=== PATIENT | male | born 1955 | race Caucasian/White ===

== ENCOUNTER 2023-12-27 16:18 | Inpatient (IN) | payer MEDICARE, OTHER, SELFPAY ==
[2023-12-27 16:27] VITALS: BP 115/66; PULSE 81; RESP 16; TEMP 37; O2SAT 97; BMI 24.5
--- NOTE | 2023-12-27 17:00 | HP.PCM_ITS ---
[facility] - General General Date of Admission: 12/27/23 Date of Service: 12/27/23 Chief Complaint: Here for rehabilitation. HPI Narrative JENNIFER GOTTLIEB, is a 68 Male who presents with followin12/18/2023 Admit to [facility]. L1, L2, L4 compression fracture, TLSO brace, following with Neurosurgery. Worsening back pain. Significant pain with EMS, 10/10 sharp pain. Low back pain radiates to bilateral hips, worse on left side. Urinalysis negative. CT Lumbar spine negative bone destruction, or acute fracture, but showed L1, L2, L4 compression fracture, bilateral foraminal stenosis L4-L5, S5-S1. Consult neurosurgery, TLSO, PT/OT, oxycodone, Dilaudid IV for intractable low back pain. Continue Flexeril 10mg tid, Lidoderm patch, Gabapentin 200mg tid. 12/23/2023 Kyphoplasty per IR. 12/25/2023 MRI pelvis showed bilateral proximal femur bone marrow changes concerning for infiltrative process. Orthopedics recommended Hematology/Oncology consult for Multiple myeloma evaluation. WBAT, PT/OT. 12/25/2023 Heme/Onc concern for underlying neoplasm. 12/25/2023 MRI left hip showed marrow abnormality right hip, bilateral femoral shaft, possible lymphoma/leukemia or multiple myeloma. 12/26/2023 Heme/Onc recommended SPEP, FLS for multiple myeloma. Evaluate anemia. Thrombocytopenia improved. DEXA for lumbar compression fracture. 12/26/2023 Serum free lambda 185, elevated. 12/27/2023 Bone marrow biopsy performed. 12/27/2023 Admit to TCU with debility, here for rehabilitation, strengthening, prior to discharge home with . [facility] Medical History (Updated 12/27/23 @ 17:[address] Keith Rojas MD) Basal cell carcinoma Bone marrow disorder Chronic low back pain Compression fracture of L1 lumbar vertebra Compression fracture of L2 Compression fracture of L4 vertebra Debility Diabetes mellitus type II, controlled Hypertension Intractable back pain Pseudohyponatremia Recurrent deep vein thrombosis (DVT) Home Medications amlodipine 5 mg tablet 5 mg PO QDAY BP 07/08/18 [History Last Taken 12/27/23] amoxicillin 875 mg tablet 875 mg PO BID #20 tabs 07/08/18 [Rx Last Taken Unknown] cholecalciferol (vitamin D3) 125 mcg (5,000 unit) capsule 5,000 unit PO QDAY supplement 07/08/18 [History Last Taken Unknown] metoprolol succinate 50 mg tablet,extended release 24 hr 50 mg PO QDAY BP/pulse 07/08/18 [History Last Taken Unknown] psyllium husk 0.4 gram capsule (Fiber (psyllium husk)) 0.4 g PO ONCE 07/08/18 [History Last Taken Unknown] acetaminophen 500 mg capsule 1,000 mg PO Q8 pain 12/27/23 [History Last Taken Unknown] alendronate 70 mg tablet 70 mg PO DALE bone loss 12/27/23 [History Last Taken 12/22/23] apixaban 5 mg tablet (Eliquis) 5 mg PO Q12H blood thinner 12/27/23 [History Last Taken Unknown] bisacodyl 5 mg tablet,delayed release (Laxative (bisacodyl)) 10 mg PO QHS laxative 12/27/23 [History Last Taken Unknown] cyclobenzaprine 5 mg tablet 10 mg PO TID muscle spasms 12/27/23 [History Last Taken Unknown] duloxetine 20 mg capsule,delayed release 20 mg PO QHS mood 12/27/23 [History Last Taken Unknown] gabapentin 100 mg capsule 200 mg PO TID pain 12/27/23 [History Last Taken Unknown] lidocaine 4 % topical patch 2 patch topical Q24H pain 12/27/23 [History Last Taken Unknown] oxycodone 10 mg tablet,crush resistant,extended release 12 hr (OxyContin) 10 mg PO pain 12/27/23 [History Last Taken Unknown] oxycodone 5 mg tablet 5 - 10 mg PO Q6H PRN pain 12/27/23 [History Last Taken Unknown] sennosides 8.6 mg-docusate sodium 50 mg capsule (Senna Plus) 2 tab-cap PO BID bowels 12/27/23 [History Last Taken Unknown] Allergy/AdvReac Type Severity Reaction Status Date / Time No Known Allergies Allergy Unverified 07/08/18 19:50 Family History Other Diabetes Heart disease Hypertension Surgical History (Updated 12/27/23 @ 17:[address] Keith Rojas MD) History of kyphoplasty History of tonsillectomy History of tonsillectomy and adenoidectomy Social History (Updated 12/27/23 @ 17:[address] Keith Rojas MD) household members: spouse Smoking Status: Never smoker alcohol intake: current details: Social. substance use type: does not use ROS Constitutional Constitutional: Reports poor appetite and weight loss; Denies chills, fever(s) or weight gain ENT HEENT: Denies headache(s), nasal congestion or nasal discharge Cardiovascular Cardiovascular: Denies chest pain or palpitations Respiratory/Chest Respiratory/Chest: Denies cough, excessive phlegm production or shortness of breath with exertion Gastrointestinal Gastrointestinal: Denies abdominal pain, nausea or vomiting Genitourinary Genitourinary: Denies dysuria Musculoskeletal Musculoskeletal: Reports back pain; Denies joint pain or joint swelling Integumentary Integumentary: Denies rash or wounds Neurologic Neurologic: Denies focal weakness, numbness or tingling Psychiatric Psychiatric: Reports depression; Denies anxiety, auditory hallucinations, homicidal ideation or suicidal ideation Vital Signs Vital Signs Vital Signs: Weight Weight: 68.991 kg Body Mass Index (BMI) 24.5 Physical Exam Const alert General Appearance: cooperative HEENT normocephalic Eyes PERRL and EOMs intact bilaterally Neck supple, no JVD and no carotid bruits Resp normal respiratory effort, normal air movement and clear to auscultation bilaterally Cardio regular rate and regular rhythm GI normal to inspection, nondistended, normoactive bowel sounds, non-tender and non-distended Extremity normal capillary refill General Extremity: Negative for edema Skin no rashes or lesions noted General Skin Exam: no breakdown Psych affect normal Appearance: appropriate Assessment & Plan Assessment/Plan (1) Debility: (2) Intractable back pain: (3) Pseudohyponatremia: (4) Bone marrow disorder: (5) Diabetes mellitus type II, controlled: (6) Hypertension: (7) Chronic low back pain: (8) Compression fracture of L1 lumbar vertebra: (9) Compression fracture of L2: (10) Compression fracture of L4 vertebra: (11) Recurrent deep vein thrombosis (DVT): PLAN: Plan 68 year old male with below past medical history hospitalized for intractable back pain, kyphoplasty 12/23/2023, complicated by hyponatremia, bone marrow disorder, admitted to TCU with debility, here for rehabilitation, strengthening, prior to discharge home with . * Debility - PT/OT. * Pain - Tylenol 1000mg q8, Oxycontin 10mg bid, Oxycodone 10mg q4 prn pain (4- 10), Lidoderm 2 patches topical daily. * Bowel - Miralax 17gm daily, Senna/colace 2 tablets bid, Dulcolax 10mg po qhs, Magnesium citrate 300ml daily prn. * Adult immunization - Administer pneumonia vaccine, covid vaccine, flu vaccine as appropriate. * DVT prophylaxis - on Eliquis. * Osteoporosis - Alendonate 70mg qweek, Vitamin D3 25mcg daily. * Recurrent DVT - Eliquis 5mg bid. * Muscle spasm - Flexeril 5mg tid. * Neuropathic pain - Gabapentin 200mg tid, Duloxetine 20mg qhs, stable chronic usp use, GDR not recommended. * Nutrition - Glucerna Shake 120ml po tidcm. * Hypertension - Metoprolol succinate 50mg daily. * Depression/Appetite loss - rx Mirtazapine 7.5mg qhs. * Bone marrow disorder - Schedule [facility] appointment to evaluate for lymphoma vs leukemia vs multiple myeloma, Serum free lambda 185, bone marrow biopsy done 12/27/2023 at [facility].
[2023-12-27 17:25] VITALS: BMI 24.5
--- OUTSIDE RECORDS SUMMARY | 2023-12-27 18:10 | XMS RPT_ITS | CCD ---
Author Name Unknown Address [address] [place] [address] Organization [facility] Care Team Providers Care Automation Control Integrator Name Role Phone CINDI, SASHA Primary Care Unavailable CINDI, SASHA Referring Unavailable CINDI, SASHA Primary Care Unavailable CINDI, SASHA Primary Care Unavailable GILBERTO DUNLAP Referring Unavailable CINDI, SASHA Primary Care Unavailable GILBERTO DUNLAP Referring Unavailable CINDI, SASHA Primary Care Unavailable GILBERTO DUNLAP Attending Unavailable GILBERTO DUNLAP Referring Unavailable CINDI, SASHA Primary Care Unavailable NEO COOK Attending Unavailable BILL BRUNNER Admitting Unavailable KEY MAHMOOD Referring Unavailable Tom Goyal Consulting Unavailable CINDI, SASHA Primary Care Unavailable EFRAIN BOWMAN Attending Unavailable GILBERTO DUNLAP Referring Unavailable JANET OLIVIER Attending Unavailable CINDI, SASHA Primary Care Unavailable CINDI, SASHA Primary Care Unavailable SCOUT LUKE Admitting Unavailable SCOUT LUKE Attending Unavailable CINDI, SASHA Primary Care Unavailable WHINNEY, CHRISTOPHCAROLINE Admitting Unavailable WHCHANTELNEY CHRISTSERGEY Attending Unavailable CINDI, SASHA Primary Care Unavailable CINDI, SASHA Primary Care Unavailable CINDI, SASHA Referring Unavailable CINDI, SASHA Primary Care Unavailable CINDI, SASHA Referring Unavailable CINDI, SASHA Primary Care Unavailable CINDI, SASHA Primary Care Unavailable ABBEY PINEDA Referring Unavailable ERNIE LUNA Admitting Unavaila ble CINDI, SASHA Primary Care Unavailable HALIE GUEVARA Consulting Unavailable ZONIA LOVE Attending Unavail able GIANFRANCO DIETZ Referring Unavailable CINDI, SASHA Primary Care Unavailable CINDI, SASHA Primary Care Unavailable GILBERTO DUNLAP Attending Unavailable Medications Current Medications Medication Drug Class(es) Dates Sig (Normalized) Sig (Original) gabapentin 100 mg oral capsule (7 sources) Anti-epileptic Agent Start: 10-16-2023 End: 11-15-2023 take 1 capsule by mouth every eight hours gabapentin (NEURONTIN) 100 mg capsule Take 1 capsule by mouth every 8 hours for 30 days. 90 capsule 0 10/16/2023 11/15/2023 Active Completed/Discontinued Medications Medication Drug Class(es) Dates Sig (Normalized) Sig (Original) alendronic acid 70 mg oral tablet (1 source) Bisphosphonate Start: 10-30-2023 take 1 tablet by mouth every week alendronate (FOSAMAX) 70 mg tablet Take 1 tablet by mouth one time a week. 0 10/30/2023 Active Problems Problem Classification Problem Date Documented Da te Episodic/Chronic Administrative/social admission (11 sources) Other reduced mobility; Translations: [Other specified conditions influencing health status] Onset: 10-08-2023 10-10-2023 Episodic Chronic ulcer of skin (1 source) Pressure ulcer of unspecified ankle, unspecified stage; Translations: [Controlled type 2 diabetes mellitus with pressure ulcer of ankle (HCC)] Onset: 08-09-2023 Chronic Diabetes mellitus without complication (1 source) Type 2 diabetes mellitus without complications; Translations: [Controlled type 2 diabetes mellitus with pressure ulcer of ankle (HCC)] Onset: 08-09-2023 Chronic Essential hypertension (1 source) Essential (primary) hypertension; Translations: [Essential hypertension, malignant] Onset: 08-09-2023 Chronic Nutritional deficiencies (1 source) Mild protein-calorie malnutrition; Translations: [Malnutrition of mild degree (HCC)] Onset: 12-06-2023 Chronic Other fractures (5 sources) Compression fracture of lumbar spine; Translations: [Wedge compression fracture of fourth lumbar vertebra, sequela] Onset: 11-06-2023 10-22-2023 Episodic Other fractures (1 source) Compression fracture of L2; Translations: [Wedge compression fracture of second lumbar vertebra, initial encounter for closed fracture] Onset: 11-12-2023 11-12-2023 Episodic Other fractures (1 source) Wedge compression fracture of fourth lumbar vertebra, sequela; Translations: [Compression fracture of L4 lumbar vertebra, sequela] Onset: 12-10-2023 Episodic Other fractures (1 source) Wedge compression fracture of second lumbar vertebra, subsequent encounter for fracture with routine healing; Translations: [Compression fracture of L2 vertebra with routine healing, subsequent encounter] Onset: 12-10-2023 Episodic Other fractures (1 source) Wedge compression fracture of first lumbar vertebra, subsequent encounter for fracture with routine healing; Translations: [Compression fracture of L1 vertebra with routine healing, subsequent encounter] Onset: 12-10-2023 Episodic Other fractures (1 source) Wedge compression fracture of first lumbar vertebra, initial encounter for closed fracture; Translations: [Compression fracture of L1 lumbar vertebra, closed, initial encounter ([facility])] Onset: 12-06-2023 Episodic Other fractures (1 source) Wedge compression fracture of second lumbar vertebra, initial encounter for closed fracture; Translations: [Compression fracture of L2 lumbar vertebra, closed, initial encounter ([facility])] Onset: 12-06-2023 Episodic Other fractures (1 source) Wedge compression fracture of fourth lumbar vertebra, initial encounter for closed fracture; Translations: [Closed compression fracture of L4 lumbar vertebra, initial encounter ([facility])] Onset: 10-14-2023 Episodic Pathological fracture (1 source) Pathological fracture, other site, initial encounter for fracture; Translations: [Pathological fracture, other site, initial encounter for fracture] Onset: 12-10-2023 Episodic Spondylosis; intervertebral disc disorders; other back problems (20 sources) Acute low back pain; Translations: [Acute bilateral low back pain without sciatica] Onset: 10-08-2023 10-10-2023 Episodic Unclassified (1 source) Lower back L hip pain Onset: 12-17-2023 Unclassified (1 source) Intractable low back pain; Translations: [Intractable low back pain] Onset: 12-03-2023 Unclassified (1 source) Acute bilateral low back pain without sciatica; Translations: [Acute bilateral low back pain without sciatica] Onset: 12-06-2023 Unclassified (1 source) Acute low back pain without sciatica, unspecified back pain laterality; Translations: [Acute low back pain without sciatica, unspecified back pain laterality] Onset: 10-14-2023 Results Test Name Value Interpretation Reference Range Facil ity Encounters Encounter Date Encounter Type Care Provider Facility Start: 12-18-2023 Evaluation and manag ement of inpatient [facility] Facility:[facility] Start: 12-17-2023 Emergency department patient visit SASHA CINDI Facility:[facility] Start: 12-13-2023 End: 12-13-2023 ambulatory SASHA CINDI Facility:[facility] Start: 12-10-2023 End: 12-10-2023 ambulatory SASHA CINDI Facility:[facility] Start: 12-10-2023 ambulatory SASHA CINDI Facility :[facility] Start: 11-29-2023 End: 12-06-2023 Evaluation and management of inpatient SASHA CINDI Facility:[facility] Start: 11-25-2023 End: 11-29-2023 Evaluation and management of inpatient SASHA CINDI Facility:[facility] Start: 11-12-2023 End: 11-12-2023 ambulatory SASHA CINDI Facility:[facility] Start: 11-12-2023 End: 11-12-2023 Subsequent hospital visit by physician [facility] MA[facility]TE[facility]CE MANA[facility] Procedures Date Procedure Procedure Detail Performing Clinician Start: 09-27-2023 Radex spine lumbosac ral 2/3 views Sasha Wetzel MD Work Phone: Start: 07-22-2018 Lipid 1996 panel - S breann or Plasma Xr Hosp Plan of Treatment Date Care Activity Detail Author Start: 10-14-2026 Diabetes Screening Diabetes Screening [facility] Start: 08-09-2026 Diabetes Screening Diabetes Screening [facility] Start: 07-26-2023 Covid-19 Vaccine ( season) Covid-19 Vaccine ( season) [facility] Start: 07-26-2023 Influenza [facility] Start: 07-22-2023 Lipid 1996 panel - Serum or Plasma Lipid Screening [facility] Start: 07-22-2023 Lipid panel Lipid Screening [facility] Start: 11-25-2022 Advance Directive Discussion Advance Directive Discussion [facility] Start: 11-25-2022 Depression Assessment Depression Assessment [facility] Start: 2018 Pneumococcal Vaccine: 65+ (1 - PCV) Pneumococcal Vaccine: 65+ (1 - PCV) [facility] Start: 2018 Pneumococcal Vaccine: 65+ (1 of 1 - PCV) Pneumococcal Vaccine: 65+ (1 of 1 - PCV) [facility] Start: 2013 RSV Vaccine (1 - 1-dose 60+ series) RSV Vaccine (1 - 1-dose 60+ series) [facility] Start: 2003 Shingrix Vaccine (1 of 2) Shingrix Vaccine (1 of 2) [facility] Start: 1998 Cologuard (FIT-DNA) Cologuard (FIT-DNA) [facility] Start: 1998 Colonoscopy Colonoscopy [facility] Start: 1998 Colorectal Cancer Screening Colorectal Cancer Screening [facility] Start: [address] Colonography [facility] Start: 1998 Fecal Occult Blood Fecal Occult Blood [facility] Start: 1998 Screening for malignant neoplasm of colon [facility] Start: 1998 Sigmoidoscopy Sigmoidoscopy [facility] Start: 1972 Urine microalbumin profile DTaP,Tdap,Td Vaccine (1 - Tdap) [facility] Start: 1971 Hepatitis C Screening Hepatitis C Screening [facility] Start: 1971 Hepatitis C screening Hepatitis C Screening [facility] Radex spine lumbosac ral 2/3 views XR LUMBAR LIMITED 2V AP/LAT Radiology Routine Compression fracture of L4 lumbar vertebra, sequela 11/12/2023 10:43 AM EST [facility] Work Phone: [facility] Payers Date Payer Category Payer Medicare [id number] 2020 Unknown MMO MMO MEDICARE SUPPLEMENT [id number] 2020-Present [phone] [address] [place] [address] Indemnity [id number] 2018 Medicare [id number] 2018 Medicare MEDICARE MEDICAR E A AND B [id number] 2018-Present [phone] [address] [address] [place] [address] Medicare [id number] Social History Date Type Detail Facility Start: 07-23-2018 End: 10-14-2023 Tobacco smoking status NHIS Never smoked tobacco [facility] Work Phone: Start: 07-23-2018 End: 10-14-2023 Tobacco use and exposure Smokeless tobacco non-user [facility] Work Phone: Start: 07-23-2018 Alcohol intake Current non-dr phys therapist of alcohol (finding) [facility] Start: 07-23-2018 End: 10-08-2023 History of Social function [facility] Work Phone: Start: 07-23-2018 End: 10-08-2023 Tobacco use panel [facility] Work Phone: PHQ2 Score 0 [facility] Work Phone: Start: 1955 Sex Assigned At Not on file [facility] Start: 10-14-2023 End: 11-12-2023 Alcohol intake Current drinker of alcohol (finding) [facility] Start: 10-14-2023 Alcohol Comment socially [facility] Clinical Notes 05-18-2022 to 12-25-2023 Kyra Mir, PT, DPT - 11/06/2023 12:46 PM ESTTelephone Encounter - Nicolette Longoria RN - 10/25/2023 1:27 PM ESTTelephone Encounter - Sunshine Willams LPN - 10/24/2023 1:45 PM EST Note Date & Type Note Facility 12-25-2023 Note [facility] 12-24-2023 Note [facility] 12-23-2023 Note [facility] 12-23-2023 Note [facility] 12-22-2023 Note [facility] 12-22-2023 Note [facility] 12-21-2023 Note [facility] 12-21-2023 Note [facility] 12-20-2023 Note [facility] 12-20-2023 Note [facility] 12-20-2023 Note [facility] 12-19-2023 Note [facility] 12-19-2023 Note [facility] 12-18-2023 Note [facility] 12-13-2023 Note [facility] 12-10-2023 Note [facility] 12-10-2023 Note [facility] 12-04-2023 [facility] 12-03-2023 Note [facility] 12-02-2023 Note [facility] 11-28-2023 Note [facility] 11-27-2023 Note [facility] 11-12-2023 Note [facility] 11-06-2023 Note [facility] 11-06-2023 History of Presen t illness Narrative Episode Visit Count: 3 Therapist That Will Accept/Oversee The Plan Of Care: Kyra Mir Start of Care Date: 10/08/23 Onset Date: 09/17/23 Plan of Care Certification Date: 10/08/23 Next Certification Due Date: 12/07/23 Patient Identified by Name and Date of : Yes REHABILITATION AND SPORTS THERAPY PHYSICAL THERAPY RE-EVALUATION PLAN OF CARE UPDATE: Assessment: Jennifer Crouch returns to clinic for re-evaluation s/p hospitalization and diagnosis of L4 superior endplate osteoporotic fracture. CT of the left hip also revealed possible AVN of the left femoral head. Limited functional reevaluation was completed today due to patient's functional mobility limitations secondary to pain. He demonstrates difficulty with sitting, rising from a chair, and walking. PT goals were reviewed today; based on current status, he has not made progress toward goals. Patient continues to present with impairments in gait, overall function, and symptom management that interfere with standing, walking, rising from a chair, stair negotiation, bending, lifting, physical activities, recreational activities, squatting, bed mobility, sleeping . Current prognosis is Fair due to: clinical presentation, limited tolerance to activity . He will benefit from continued skilled therapy services to meet the updated goals for this plan of care as noted below. It is recommend PT be put on hold until patient follows up with neurosurgery on 11/12/23. At this time, patient's pain is still significantly limiting his functional mobility and activity tolerance. He and his inquired about home health physical therapy due to patient's difficulty and significant increase in pain with performing car transfers. Goals for Episode of Care: created on 10/08/23 through 12/03/23. Updated 11/06/23. Independent in home exercises. (on hold) Restore pain-free lumbar ROM to minimal limitations or better in all planes of movement to allow for ability to perform household activities. (on hold) Stand / Walk 20 minutes with pain <2/10 (not met) Patient to perform stair negotiation without limitation from back pain. (not met) Patient to perform bed mobility without limitation from back pain. (not met) Patient to perform sit to stand transfer from standard height chair without difficulty. (not met) Patient Goals: To get back to typical household activities (not met) Planned Interventions, Frequency, and Duration: 1x/week, 8 weeks Total Number of Visits Planned: 8 Patient to be seen for Therapeutic exercise (86819), Neuromuscular re-education (68106), Manual therapy (71503), Therapeutic activities (32293), Self-mcfp management (28105), Gait Training (01372) PLAN FOR NEXT VISIT: Hold PT until patient follows up with neurosurgery. SUBJECTIVE: Jennifer was admitted to the hospital on 10/14/23 for worsening low back pain. CT of lumabr spine revealed L4 compression fracture. He was put on prednisone (no longer taking). He was discharged home from hospital with FWW, LSO brace when OOB, oxycodone. He is taking oxycotin. His is helping assist with all household activities and most ADLS including dressing and showering. He was dicharged with home health PT orders however was told by his PCP that he would not qualify. He has not followed up with neurosurgeon yet; he is scheduled for a consult next week. CT of left hip in hospital also revealed Probable AVN at the left femoral head per imaging report.. Functional Limitations: standing, walking, rising from a chair, stair negotiation, bending, lifting, physical activities, recreational activities, squatting, bed mobility, sleeping Pain: Pain Pain Level: 3 Pain Location: Low Back/Lumbar Spine- Midline Detailed Pain Score: Yes Worst Pain Level: 10 PROMIS Scales Higher is Better 11/03/2023 10/05/2023 Phys Func - Score 23 (severe dysfunction) 23 (severe dysfunction) Phys Func - Percentile 0% 0% Self-Eff Symptom - Score 38 (Low) 41 (Average) Self-Eff Symptom - Percentile 12% 18% T-scores: mean of general population = 50. 5 points is clinically meaningfully difference Percentiles provide an indication of how the patient's score ranks in relation to the general population. Higher percentile rankings indicate better function/quality of life. 50th percentile is the average of the general population and indicates half of respondents had a worse score. OBJECTIVE MEASURES WITH LEVEL OF FUNCTION: Lumbar Spine AROM Lumbar Spine AROM Comments: not tested; patient wearing LSO brace as prescribed LE PROM Tested?: No LE Strength R LE Strength: deferred L LE Strength: deferred Gait Gait: Modified Independent Gait Device: Wheeled Walker Gait Deviations: General Deviations General Deviations/Observations: Sneha decreased Functional Performance Test Results Assistive Device: Wheeled Walker 10 Meter Walk Test Trial 1 (seconds): 11.88 10 Meter Walk Test Average (m/sec): 0.51 TREATMENT: Self-Retirement Management: 1: patient and family (spouse) member education on the followin: -recommended continued use of FWW 3: -continued use of LSO brace as recommended by provider 4: -refitting/tightening LSO brace as requested by patient. Patient reported improved comfort after brace adjustment was performed. 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 Reviewed patient specific diagnosis in relation to activities of daily living/home management. Billing * Re-Evaluation : 1 Unit Self-Care/Home Management Treatment Minutes: 24 Skilled Treatment Time Minutes (timed and untimed codes): 24 Total Session Time (minutes): 42 Session Start Time : 1247 Session Stop Time : 1329 Kyar Mir PT DPT documented in this encounter [facility] 10-25-2023 Miscellaneous Notes Per [facility] and I reached out to Sunshine Willams LPN: Per CMS guidelines he will need to have a face to face visit with you to address his home care needs since he discharged from the hospital. This can be completed virtually or in-person by you, a LEAD PERFORMANCE SUPPORT ANALYST or PA that you collaborate with. Also, per CMS guidelines that office note needs to include a discussion of HHC with the following: - why is HHC needed - why is the patient homebound - what is the diagnosis that HHC is seeing the patient for. We placed patient on Dr Dunlap's schedule for Saturday for a virtual visit to discuss this. Called patient's who stated that they are going to see his PCP next week and she states the PCP may place home PT orders instead. I told her if the PCP placed HHC PT order to let us know and we can cancel their appt. She understands.they are aware of their appt on 11/12 as well with x-rays. Nicolette Longoria RN documented in this encounter [facility] 10-24-[address] Dunlap [facility] received an order for Jennifer to receive HHC services. Per CMS guidelines he will need to have a face to face visit with you to address his home care needs since he discharged from the hospital. This can be completed virtually or in-person by you, a LEAD PERFORMANCE SUPPORT ANALYST or PA that you collaborate with. Also, per CMS guidelines that office note needs to include a discussion of HHC with the following: - why is HHC needed - why is the patient homebound - what is the diagnosis that HHC is seeing the patient for. Once completed please place a new order for HHC services. Thank you, Sunshine Willams LPN documented in this encounter [facility] 10-22-2023 Miscellaneous Notes The patient's contacted the office and stated they needed to get home physical therapy going. She states she was told by PT during his admission that he would benefit from home PT, however states once discharged they were provided with outpatient PT order. They are requesting home PT. Spoke with Dr. Dunlap who is agreeable to order for home PT. Order placed. also stated she may be contacting [facility] which is close to their home and seeing if they offer any home PT services. She was appreciative. Fran Coronel RN documented in this encounter [facility] 10-15-2023 Note [facility] documented as of this encounter (statuses as of 10/22/2023) [facility]11-21-2023 History of Past illness Narrative* Problem Noted Date Diagnosed Date Resolved Date Atypical chest pain 10/15/2023 10/16/20 23 documented as of this encounter (statuses as of 10/22/2023) [facility] History of Past illness Narrative* Problem Noted Date Diagnosed Date Resolved Date Atypical chest pain 10/15/2023 10/16/20 23 documented as of this encounter (statuses as of 10/22/2023) [facility] History of Past illness Narrative* Problem Noted Date Diagnosed Date Resolved Date Atypical chest pain 10/15/2023 10/16/20 23 documented as of this encounter (statuses as of 10/24/2023) [facility] History of Past illness Narrative* Problem Noted Date Diagnosed Date Resolved Date Atypical chest pain 10/15/2023 10/16/20 23 documented as of this encounter (statuses as of 10/25/2023) [facility] History of Past illness Narrative* Problem Noted Date Diagnosed Date Resolved Date Atypical chest pain 10/15/2023 10/16/20 23 documented as of this encounter (statuses as of 11/07/2023) [facility] History of Past illness Narrative* Problem Noted Date Diagnosed Date Resolved Date Atypical chest pain 10/15/2023 10/16/20 23 documented as of this encounter (statuses as of 11/13/2023) [facility]11-21-2023 [facility] History of Present illness Narrative* Kyra Mir PT, DPT - 10/10/2023 8:20 AM EST Program_ID:[id number] Access Code: [email or web address] URL: [email or web address] Date: 10-10-2023 Prepared By: Kyra Mir Program Notes Exercises - Standing Lumbar Extension with Counter - 5 x daily - 7 x weekly - - 5-10 - Seated Transversus Abdominis Bracing - 5 x daily - 7 x weekly - - 10 - Seated Isometric Hip Abduction with Belt - 2 x daily - 7 x weekly - 2 - 10 - Seated Isometric Hip Adduction with Ball - 2 x daily - 7 x weekly - 2 - 10 * yKra Mir PT, DPT - 10/10/2023 7:40 AM EST Episode Visit Count: 2 Therapist That Will Accept/Oversee The Plan Of Care: Kyra Mir Start of Care Date: 10/08/23 Onset Date: 09/17/23 Plan of Care Certification Date: 10/08/23 Next Certification Due Date: 12/07/23 Patient Identified by Name and Date of : Yes REHABILITATION AND SPORTS THERAPY PHYSICAL THERAPY TREATMENT NOTE ASSESSMENT: Jennifer Crouch tolerated the session with limited activity tolerance due to pain and difficulty with functional transfers/positioning. He demonstrates significant difficulty with functional transfers, avoiding spinal flexion and rotation. Hip screen has not been completed due to inability to tolerate testing positions. The patient will continue to benefit from ongoing skilled physical therapy to progress toward set goals. PLAN FOR NEXT VISIT: Attempt prone lying next visit. Core activation/strengthening in standing. SUBJECTIVE: Jennifer states he has been doing GLENNA and walking more througout the house. Pain does not increase then doing GLENNA. He noticed significant increase in pain when getting up after laying on his left side on the floor. THis morning he felt pretty good waking up. He states his bowel movements have normalized. Pain: Pain Pain Level: 4 Pain Location: Low Back/Lumbar Spine- Midline Post Treatment Pain Post Treatment Pain Level: No Change OBJECTIVE MEASURES WITH LEVEL OF FUNCTION: Lumbar Spine AROM Lumbar Flexion: (patient declined; fearful of pain) Lumbar Extension: Minimal limitation Lumbar R Side-Bend: Major limitation Lumbar L Side-Bend: Moderate limitation Lumbar R Rotation: Moderate limitation Lumbar L Rotation: Moderate limitation TREATMENT: Therapeutic Exercise: 1: GLENNA 4x5 (spread out throughout treatment session) 2: sidelying TA 5 x10 3: seated hip abd iso 5 x10 4: seated hip add iso 5 x10 5: -increased time required to complete transfers. Mechanical raising/lowering of table required tofacilitate sit<>stand. Skilled Intervention: Patient was educated in proper exercise technique and purpose for exercises. Reviewed and educated patient on additions/changes for home exercise program as above (*). Skilled judgment was used in selection of appropriate interventions. Provided written instruction for home exercise program to facilitate proper performance and compliance. Correct performance of therapeutic exercises was facilitated with verbal cuing. Manual Therapy: 1: STM lumbar paraspinals, increased focus R paraspinals. Patient in left sidelying. (no significant muscle tension. No tenderness reported. difficulty and pain transfering to stand.) Skilled Intervention: Manual skills to improve joint mobility, ROM, and decrease pain. Utilized anatomy knowledge of the therapist, and assessment of patient's response to intervention. Billing Therapeutic Exercise Treatment Minutes: 32 Manual TherapyTreatment Minutes: 8 Skilled Treatment Time Minutes (timed and untimed codes): 40 Total Session Time (minutes): 44 Session Start Time : 742 Session Stop Time : 826 Kyra Mir PT, DPT [facility]11-03-2023 NoteHNO ID: [id number] Author: Dwain Neri RT(R) Service: Radiology Author Type: Technologist Type: Progress Notes Filed: 09/27/2023 12:49 PM Note Text: Radiology Service Progress Note PATIENT NAME: Jennifer Crouch DATE OF SERVICE: September 27, 2023 TIME: 12:47 PM PATIENT IDENTITY VERIFICATION COMPLETED USING TWO (2) IDENTIFIERS: Name and Date of confirmed by patient verbally. FALL SCREENING: Has the patient had 2 falls in the last year or 1 fall with injury or currently using an Ambulatory Assistive Device (Walker, Cane, Wheelchair, Crutches, etc.)? No PATIENT GENDER DATA: Male PATIENT RELEVANT IMPLANT DATA REVIEWED: Not Applicable RADIOLOGY DEPARTMENT: General X-ray: Exam(s) Completed: Spine X-Ray(s): Lumbar AP / LAT / L5-S1 Pelvis X-Ray: Pelvis with Hip Bilateral Hips only, no Pelvis PERIPHERAL IV DATA: Not applicable SIGNED BY: RT Magdi(R) September 27, 2023 12:47 PMHol[facility] [id number] History of Present illness Narrative* Dwain Neri RT(R) - 09/27/2023 1:00 PM EDT Radiology Service Progress Note PATIENT NAME: Jennifer Crouch DATE OF SERVICE: September 27, 2023 TIME: 12:47 PM PATIENT IDENTITY VERIFICATION COMPLETED USING TWO (2) IDENTIFIERS: Name and Date of confirmedby patient verbally. FALL SCREENING: Has the patient had 2 falls in the last year or 1 fall with injury or currently using an Ambulatory Assistive Device (Walker, Cane, Wheelchair, Crutches, etc.)? No PATIENT GENDER DATA: Male PATIENT RELEVANT IMPLANT DATA REVIEWED: Not Applicable RADIOLOGY DEPARTMENT: General X-ray: Exam(s) Completed: Spine X-Ray(s): Lumbar AP / LAT / L5-S1 Pelvis X-Ray: Pelvis with Hip Bilateral Hips only, no Pelvis PERIPHERAL IV DATA: Not applicable SIGNED BY: RT Magdi(R) September 27, 2023 12:47 PM documented in [facility]08-[facility]22 NoteClinic Note: Education Assessment: Learning BarriersNo barriers TaughtPatient Primary Language of PatientEnglish Primary Language of [place] LearnerEnglish Clinic Visit: Topic(s): Clinic VisitFollow-up plan MethodVerbal, Teach-Back, Handout EvaluationTeaches back, States general concept Nursing Note: Nursing NotePatient saw Dr. Greenfield today. Patient will return as needed. Patient will follow with his PCP. Patient instructed on follow up plan and understanding voiced. Call back instructions reviewed. Raiza TAYLOR Electronic Signatures: Jade Tong (RN) (Signed 05-Jul-2022 15:10) Authored: Education Assessment, Clinic Visit, Nursing Note Last Updated: 05-Jul-2022 15:10 by Jade Tong (RN)[facility]06-24-2022 NoteClinic Note: Education Assessment: Learning BarriersNo barriers TaughtPatient Primary Language of PatientEnglish Primary Language of [place] LearnerEnglish Clinic Visit: Topic(s): Clinic VisitFollow-up plan MethodVerbal, Teach-Back, Handout EvaluationTeaches back, States general concept Nursing Note: Nursing NotePatient saw Dr. Greenfield today. Patient had labs done today. Patient will return to clinic in 6 to 8 weeks for results. Patient instructed on follow up plan and understanding voiced. Call back instructions reviewed. Raiza TAYLOR Electronic Signatures: Jade TongRN) (Signed 18-May-2022 09:59) Authored: Education Assessment, Clinic Visit, Nursing Note Last Updated: 18-May-2022 09:59 by Jade Tong (RN)[facility] Diagnosis Acute bilateral low back pain without sciatica- Primary Impaired functional mobility and activity tolerance [facility] Diagnosis Compression fracture of L4 lumbar vertebra, sequela- Primary documented [facility]* Diagnosis Acute bilateral low back pain without sciatica- Primary Impaired functional mobility and activity tolerance Closed compression fracture of L4 lumbar vertebra, initial encounter ([facility]) [facility] in this encounter [facility]* Diagnosis Compression fracture of L4 lumbar vertebra, sequela [facility]* Diagnostic Procedure Only (Routine) - Closed Specialty Diagnoses / Procedures Referred By Contac t Referred To Contact XR IMAGING Diagnoses Compression fracture of L4 lumbar vertebra, sequela Procedures XR LUMBAR LIMITED 2V AP/LAT RADEX SPINE LUMBOSACRAL 2/3 VIEWS Gilberto Dunlap MD [address] [place] [address] [place] [address] Referral ID Status Reason Start Date Expiration Date V isits Requested Visits Authorized [id number] Closed Auto-Generate d Referral 11/12/2023 12/11/2024 1 1 [facility] Summary Purpose Family History No Family History Records FoundNo Family History Records FoundNo Family History Records FoundNo Family History Records FoundNo Family History Records Found Advance Directives No Advanced Directives Records FoundNo Advanced Directives Records FoundNo Advanced Directives Records FoundNo Advanced Directives Records FoundNo Advanced Directives Records Found Reason for Referral Specialty Diagnoses / Procedures Referred By Contac t Referred To Contact Diagnoses Compression fracture of L4 lumbar vertebra, sequela Procedures CONSULT TO [facility] Gilberto Dunlap MD [address] [place] [address] [address] [place] [id number] Referral ID Status Reason Start Date Expiration Date Visits Requested Visits Authorized [id number] Pending Review PCP Requested Referral 3 01/20/2024 1 1 Additional Source Comments (unrecognized sect ion and content) No Status Records FoundNo Status Records FoundNo Status Records FoundNo Status Records FoundNo Status Records Found INFORMATION SOURCE (unrecogn ized section and content) DATE CREATED AUTHOR AUTHOR'S ORGANIZ ATION 07/07/2022 [facility] DATE CREATED AUTHOR AUTHOR'S ORGANIZ ATION 09/29/2023 [facility] DATE CREATED AUTHOR AUTHOR'S ORGANIZ ATION 11/30/2023 [facility] DATE CREATED AUTHOR AUTHOR'S ORGANIZ ATION 12/26/2023 [facility] Source Comments (unrecognize d section and content) In the event this informatio n is protected by the Federal Confidentiality of Alcohol and Drug Abuse Patient Records regulations: The Federal rules restrict any use of the information to criminally investigate or prosecute any alcohol or drug abuse patient.[facility] Hospital[facility] the event this information is protected by the Federal Confidentiality of Alcohol and Drug Abuse Patient Records regulations: The Federal rules restrict any use of the information to criminally investigate or prosecute any alcohol or drug abuse patient.[facility] the event this information is protected by the Federal Confidentiality of Alcohol and Drug Abuse Patient Records regulations: The Federal rules restrict any use of the information to criminally investigate or prosecute any alcohol or drug abuse patient.[facility] HospitalIn the event this information is protected by the Federal Confidentiality of Alcohol and Drug Abuse Patient Records regulations: The Federal rules restrict any use of the information to criminally investigate or prosecute any alcohol or drug abuse patient.[facility] HospitalIn the event this information is protected by the Federal Confidentiality of Alcohol and Drug Abuse Patient Records regulations: The Federal rules restrict any use of the information to criminally investigate or prosecute any alcohol or drug abuse patient.[facility]In the event this information is protected by the Federal Confidentiality of Alcohol and Drug Abuse Patient Records regulations: The Federal rules restrict any use of the information to criminally investigate or prosecute any alcohol or drug abuse patient.[facility] HospitalIn the event this information is protected by the Federal Confidentiality of Alcohol and Drug Abuse Patient Records regulations: The Federal rules restrict any use of the information to criminally investigate or prosecute any alcohol or drug abuse patient.[facility] HospitalIn the event this information is protected by the Federal Confidentiality of Alcohol and Drug Abuse Patient Records regulations: The Federal rules restrict any use of the information to criminally investigate or prosecute any alcohol or drug abuse patient.[facility] HospitalIn the event this information is protected by the Federal Confidentiality of Alcohol and Drug Abuse Patient Records regulations: The Federal rules restrict any use of the information to criminally investigate or prosecute any alcohol or drug abuse patient.[facility] Care Teams (unrecognized sec tion and content) Automation Control Integrator Relationship Specialty Start Date End Date Sasha Wetzel MD [address] [address] PCP - General Internal Medicine 08/06/18 Automation Control Integrator Relationship Specialty Start Date End Date Sasha Wetzel MD [address] [address] PCP - General Internal Medicine 08/06/18 Automation Control Integrator Relationship Specialty Start Date End Date Sasha Wetzel MD [address] [address] PCP - General Internal Medicine 08/06/18 Automation Control Integrator Relationship Specialty Start Date End Date Sasha Wetzel MD [address] [address] PCP - General Internal Medicine 08/06/18 Automation Control Integrator Relationship Specialty Start Date End Date Sasha Wetzel MD [address] [address] PCP - General Internal Medicine 08/06/18 Automation Control Integrator Relationship Specialty Start Date End Date Sasha Wetzel MD [address] [address] PCP - General Internal Medicine 08/06/18 Reason for Visit (unrecogniz ed section and content) Specialty Diagnoses / Procedures Referred By Contac t Referred To Contact Physical Therapy / PHYSICAL THERAPY Diagnoses Back/Hip Procedures NEW RS PT ORTH MSK Sasha Wetzel MD [address] [address] Jaimie Arechiga, PT [address] [place] [address] Referral ID Status Reason Start Date Expiration Date V isits Requested Visits Authorized [id number] Authorized 10/08/2023 12/04/2023 1 99 Reason Comments Physical Therapy Reason Comments 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 This clinical summary was aggregated from multiple sources. Caution should be exercised in using it in the provision of clinical care. This summary normalizes information from multiple sources, and as a consequence, information in this document may materially change the coding, format and clinical context of patient data. In addition, data may be omitted in some cases. CLINICAL DECISIONS SHOULD BE BASED ON THE PRIMARY CLINICAL RECORDS. [employer] [facility]. provides no warranty or guarantee of the accuracy or completeness of information in this document.
[2023-12-27] MEDS: Glucerna Shake 120 ML LIQUID PO (18:22)
[2023-12-27] MEDS: oxyCODONE 5 MG Tablet 10 MG PO (19:56)
[2023-12-27] MEDS: Gabapentin 100 MG Capsule 200 MG PO (21:31)
[2023-12-27] MEDS: APIXABAN 5 MG TABLET PO (21:32)
[2023-12-27] MEDS: oxyCODONE HCl Cr 10 MG Tablet PO (21:32)
[2023-12-27] MEDS: cycloBENZAPRine HCl 5 MG TABLET PO (21:33)
[2023-12-27] MEDS: Mirtazapine 15 MG Tablet 7.5 MG PO (21:34)
[2023-12-27] MEDS: DULoxetine Hcl 20 MG Capsule PO (21:36)
[2023-12-27] MEDS: Senna/Docusate Sodium 1 Tablet 2 TABLET PO (21:37)
[2023-12-27] MEDS: Bisacodyl 5 MG Tablet 10 MG PO (21:37)
[2023-12-27] MEDS: Acetaminophen 500 MG Tablet 1000 MG PO (21:38)
[2023-12-28] MEDS: Gabapentin 100 MG Capsule 200 MG PO ×3 (05:32→21:29)
[2023-12-28] MEDS: cycloBENZAPRine HCl 5 MG TABLET PO ×2 (05:33→13:27)
[2023-12-28] MEDS: Acetaminophen 500 MG Tablet 1000 MG PO ×3 (05:33→21:30)
[2023-12-28 06:54] LABS: Bedside Glucose 126 mg/dL (74-106)
[2023-12-28 09:33] LABS: Absolute Lymphocyte Count 1.28 X10^3/uL (0.83-4.51); Absolute Neutrophil Count 3.3 X10^3/uL (2.0-7.7); Basophil# 0.05 X10^3/uL; Basophil% 0.9 % (0-1); Eosinophil# 0.07 X10^3/uL; Eosinophils% 1.3 % (0-5); Hematocrit 28.4 % (40-54); Hemoglobin 9.1 g/dL (13.0-16.5); Lymphocyte # 1.28 X10^3/ul (0.83-4.51); Lymphocyte % 23.3 % (19-41); Mean Corpuscular Hgb 31.5 pg (27.0-32.0); Mean Corpuscular Volume 98.3 fL (80-94); Mean Platelet Vol. 10.2 fl (6.2-12.0); Monocyte# 0.63 X10^3/uL; Monocyte% 11.5 % (0-10); NRBC Flagged by Analyzer 0.5 % (0-5); Neutrophil # 3.26 X10^3/uL (2.7-7.7); Neutrophil % 59.2 % (47-70); Platelet Count 186 K/mm3 (150-450); RBC Distribution Width CV 15.6 % (11.6-14.6); RBC Distribution Width SD 54.7 fl (35.1-43.9); Red Blood Count 2.89 M/mm3 (4.6-6.2); White Blood Count 5.5 K/mm3 (4.4-11.0)
[2023-12-28] MEDS: APIXABAN 5 MG TABLET PO ×2 (09:34→21:29)
[2023-12-28] MEDS: oxyCODONE HCl Cr 10 MG Tablet PO ×2 (09:35→21:29)
[2023-12-28] MEDS: Cholecalciferol (VIT D3) 25 MCG TABLET (1,000 UNITS) PO (09:37)
[2023-12-28] MEDS: Glucerna Shake 120 ML LIQUID PO ×2 (09:37→17:37)
[2023-12-28 09:38] VITALS: BP 147/84; PULSE 86
[2023-12-28] MEDS: Metoprolol(XL)Succ 50 MG Tablet PO (09:38)
[2023-12-28 10:07] LABS: Anion Gap 3 (5-15); BUN 17 mg/dL (7-18); BUN/Creat Ratio 23.1 RATIO (10-20); Calcium,Total 8.7 mg/dL (8.5-10.1); Chloride 103 mmol/L (98-107); Creatinine, Serum 0.74 mg/dL (0.70-1.30); EST Glomerular Filtration Rate 112 mL/min (>60); Est Glom Filt Rate - Afr Amer 135 mL/min (>60); Estimated Creatinine Clearance 77.53 ml/min; Glucose 155 mg/dL (74-106); Sodium Level 128 mmol/L (136-145)
[2023-12-28] MEDS: oxyCODONE 5 MG Tablet 10 MG PO ×2 (10:33→17:41)
[2023-12-28 11:40] LABS: Osmolality, Serum 289 mOsm/KG (280-301)
[2023-12-28] MEDS: Tuberculin,Purif.prot.deriv. 50 TU/ML Vial 0.100000000000000006 ML ID (11:51)
--- NOTE | 2023-12-28 11:56 | NURSING ---
Pt. refuses to sit up in bed for meal, education provided on risk for choking when attempting to eat while lying flat in bed.
[2023-12-28 13:09] LABS: Urine Sodium 71 mmol/L (Not Establ.)
[2023-12-28 13:13] LABS: Osmolality, Urine 679 mOsm/KG
[2023-12-28 13:26] VITALS: BP 133/86; PULSE 82; RESP 16; TEMP 36.8; O2SAT 97
--- NOTE | 2023-12-28 18:16 | NURSING ---
Call placed to Dr. Rojas. Dr. Rojas made of patient's increase in pain and muscle spasms. Patient has been having immobilizing spasms and yelling out in pain. New order with read back received by Dr. Rojas to increase Flexeril to 10mg PO TID scheduled and add Valium 10mg PO every 4 hours as needed for muscle spasms.
[2023-12-28] MEDS: diazePAM 5 MG Tablet 10 MG PO (18:41)
[2023-12-28] MEDS: Bisacodyl 5 MG Tablet 10 MG PO (21:29)
[2023-12-28] MEDS: Senna/Docusate Sodium 1 Tablet 2 TABLET PO (21:29)
[2023-12-28] MEDS: Mirtazapine 15 MG Tablet 7.5 MG PO (21:29)
[2023-12-28] MEDS: cycloBENZAPRine HCl 5 MG TABLET 10 MG PO (21:29)
[2023-12-28 21:35] VITALS: PULSE 76; RESP 18; O2SAT 96
[2023-12-29 05:11] LABS: Hematocrit 27.8 % (40-54); Hemoglobin 8.8 g/dL (13.0-16.5)
[2023-12-29 06:31] LABS: Bedside Glucose 108 mg/dL (74-106)
[2023-12-29] MEDS: cycloBENZAPRine HCl 5 MG TABLET 10 MG PO (06:41)
[2023-12-29] MEDS: Acetaminophen 500 MG Tablet 1000 MG PO ×3 (06:41→22:27)
[2023-12-29] MEDS: Gabapentin 100 MG Capsule 200 MG PO ×3 (06:41→22:26)
[2023-12-29] MEDS: Alendronate Sodium 70 MG Tablet PO (08:10)
[2023-12-29 09:05] VITALS: PULSE 72
[2023-12-29] MEDS: oxyCODONE HCl Cr 10 MG Tablet PO ×2 (09:05→23:23)
[2023-12-29] MEDS: Senna/Docusate Sodium 1 Tablet 2 TABLET PO ×2 (09:05→22:27)
[2023-12-29] MEDS: Metoprolol(XL)Succ 50 MG Tablet PO (09:05)
[2023-12-29] MEDS: Glucerna Shake 120 ML LIQUID PO ×2 (09:06→17:38)
[2023-12-29] MEDS: Cholecalciferol (VIT D3) 25 MCG TABLET (1,000 UNITS) PO (09:06)
[2023-12-29] MEDS: APIXABAN 5 MG TABLET PO ×2 (09:06→22:27)
[2023-12-29] MEDS: oxyCODONE 5 MG Tablet 10 MG PO (10:53)
[2023-12-29] MEDS: 0.9% Normal Saline (1000mL) 1,000 ML 75 ML IV (11:10)
[2023-12-29 11:25] VITALS: BP 129/72; PULSE 89; RESP 18; TEMP 35.9; O2SAT 94
[2023-12-29 11:37] LABS: Anion Gap 4 (5-15); BUN 14 mg/dL (7-18); BUN/Creat Ratio 22.4 RATIO (10-20); Chloride 102 mmol/L (98-107); Creatinine, Serum 0.62 mg/dL (0.70-1.30); EST Glomerular Filtration Rate 135 mL/min (>60); Est Glom Filt Rate - Afr Amer 163 mL/min (>60); Estimated Creatinine Clearance 77.53 ml/min; Glucose 165 mg/dL (74-106); Sodium Level 130 mmol/L (136-145)
[2023-12-29] MEDS: Baclofen 10 MG Tablet PO ×2 (13:55→22:37)
[2023-12-29] MEDS: Bisacodyl 5 MG Tablet 10 MG PO (22:29)
[2023-12-29] MEDS: Mirtazapine 15 MG Tablet 7.5 MG PO (22:40)
[2023-12-30] MEDS: 0.9% Normal Saline (1000mL) 1,000 ML 75 ML IV ×2 (00:53→13:47)
[2023-12-30] MEDS: Gabapentin 100 MG Capsule 200 MG PO ×2 (06:00→13:55)
[2023-12-30] MEDS: Acetaminophen 500 MG Tablet 1000 MG PO ×3 (06:01→22:05)
[2023-12-30] MEDS: Baclofen 10 MG Tablet PO ×2 (06:02→13:55)
[2023-12-30 06:27] LABS: Absolute Lymphocyte Count 1.59 X10^3/uL (0.83-4.51); Absolute Neutrophil Count 2.9 X10^3/uL (2.0-7.7); Basophil# 0.04 X10^3/uL; Basophil% 0.7 % (0-1); Eosinophil# 0.08 X10^3/uL; Eosinophils% 1.4 % (0-5); Hematocrit 26.5 % (40-54); Hemoglobin 8.4 g/dL (13.0-16.5); Lymphocyte # 1.59 X10^3/ul (0.83-4.51); Lymphocyte % 28.2 % (19-41); Mean Corp Hgb Conc 31.7 g/dL (32-36); Mean Corpuscular Hgb 31.9 pg (27.0-32.0); Mean Corpuscular Volume 100.8 fL (80-94); Mean Platelet Vol. 9.7 fl (6.2-12.0); Monocyte# 0.92 X10^3/uL; Monocyte% 16.3 % (0-10); NRBC Flagged by Analyzer 0.9 % (0-5); Neutrophil # 2.88 X10^3/uL (2.7-7.7); Neutrophil % 51.3 % (47-70); Platelet Count 163 K/mm3 (150-450); RBC Distribution Width CV 15.8 % (11.6-14.6); RBC Distribution Width SD 56.1 fl (35.1-43.9); Red Blood Count 2.63 M/mm3 (4.6-6.2); White Blood Count 5.6 K/mm3 (4.4-11.0)
[2023-12-30 06:44] LABS: Bedside Glucose 109 mg/dL (74-106)
[2023-12-30 07:05] LABS: Anion Gap 1 (5-15); BUN 11 mg/dL (7-18); BUN/Creat Ratio 17.2 RATIO (10-20); Calcium,Total 8.5 mg/dL (8.5-10.1); Chloride 106 mmol/L (98-107); Creatinine, Serum 0.64 mg/dL (0.70-1.30); EST Glomerular Filtration Rate 132 mL/min (>60); Est Glom Filt Rate - Afr Amer 159 mL/min (>60); Estimated Creatinine Clearance 77.53 ml/min; Glucose 123 mg/dL (74-106); Potassium 4.3 mmol/L (3.5-5.1); Sodium Level 131 mmol/L (136-145)
[2023-12-30] MEDS: oxyCODONE HCl Cr 10 MG Tablet PO ×2 (09:45→22:05)
[2023-12-30] MEDS: Lidocaine 5% Patch 2 PATCH TOPICAL (09:46)
[2023-12-30] MEDS: Senna/Docusate Sodium 1 Tablet 2 TABLET PO ×2 (09:47→22:03)
[2023-12-30 09:51] VITALS: PULSE 72
[2023-12-30] MEDS: Cholecalciferol (VIT D3) 25 MCG TABLET (1,000 UNITS) PO (09:51)
[2023-12-30] MEDS: Metoprolol(XL)Succ 50 MG Tablet PO (09:51)
[2023-12-30] MEDS: APIXABAN 5 MG TABLET PO ×2 (09:51→22:04)
--- NOTE | 2023-12-30 10:17 | PCM.PN.DRR ---
Documented by User: Kush Roblero 12/30/23 10:36 TCU RX Drug Regimen Review Subjective/Objective Subjective/Objective: Subjective: TCU admission note. 68 year old male with below past medical history hospitalized for intractable back pain, kyphoplasty 12/23/2023, complicated by hyponatremia, bone marrow disorder, admitted to TCU with debility, here for rehabilitation, strengthening, prior to discharge home with . Objective: Allergies No Known Allergies Allergy (Unverified 07/08/18 19:50) Current Medications Generic Name Dose Route Start Last Admin Trade Name Freq PRN Reason Stop Dose Admin Acetaminophen 1,000 mg 12/27/23 22:00 12/30/23 06:01 Acetaminophen 500 Mg Tablet PO 1,000 mg Q8 CARLOS EDUARDO Administration Alendronate Sodium 70 mg 12/29/23 07:00 12/29/23 08:10 Alendronate Sodium 70 Mg Tablet PO 70 mg DALE CARLOS EDUARDO Administration Apixaban 5 mg 12/27/23 22:00 12/30/23 09:51 Apixaban 5 Mg Tablet PO 5 mg BID CARLOS EDUARDO Administration Baclofen 10 mg 12/29/23 14:00 12/30/23 06:02 Baclofen 10 Mg Tablet PO 10 mg TID CARLOS EDUARDO Administration Bisacodyl 10 mg 12/27/23 22:00 12/29/23 22:29 Bisacodyl 5 Mg Tablet PO 10 mg QHS CARLOS EDUARDO Administration Cholecalciferol 25 mcg 12/28/23 10:00 12/30/23 09:51 Cholecalciferol (Vit D3) 25 Mcg Tablet (1,000 Units) PO 25 mcg DAILY CARLOS EDUARDO Administration Diazepam 10 mg 12/28/23 18:12 12/28/23 18:41 Diazepam 5 Mg Tablet PO 10 mg Q4H PRN Administration muscle spasms Gabapentin 200 mg 12/27/23 22:00 12/30/23 06:00 Gabapentin 100 Mg Capsule PO 200 mg TID CARLOS EDUARDO Administration Sodium Chloride 1,000 mls @ 75 mls/hr 12/29/23 10:10 12/30/23 00:53 IV 75 mls/hr .[id number] CARLOS EDUARDO Administration Lidocaine 2 patch 12/28/23 10:00 12/30/23 09:46 Lidocaine 5% Patch TOPICAL 2 patch Q24 CARLOS EDUARDO Administration Magnesium Citrate 300 ml 12/27/23 19:08 Magnesium Citrate 300 Ml PO DAILY PRN CONSTIPATION Metoprolol Succinate 50 mg 12/28/23 10:00 12/30/23 09:51 Metoprolol(Xl)Succ 50 Mg Tablet PO 50 mg DAILY CARLOS EDUARDO Administration Protocol Mirtazapine 7.5 mg 12/27/23 22:00 12/29/23 22:40 Mirtazapine 15 Mg Tablet PO 7.5 mg QHS CARLOS EDUARDO Administration Nutritional Formula (Lactose Free) 120 ml 12/27/23 17:45 12/30/23 09:18 Glucerna Shake 120 Ml Liquid PO Not Given TIDCM CARLOS EDUARDO Oxycodone HCl 10 mg 12/27/23 22:00 12/30/23 09:45 Oxycodone Hcl Cr 10 Mg Tablet PO 10 mg BID CARLOS EDUARDO Administration Oxycodone HCl 10 mg 12/27/23 19:13 12/29/23 10:53 Oxycodone 5 Mg Tablet PO 10 mg Q4H PRN PRN Administration pain 4-10 Polyethylene Glycol 17 gm 12/28/23 10:00 12/30/23 09:50 Polyethylene Glycol 3350 17 Gm Packet PO Not Given DAILY CARLOS EDUARDO Senna/Docusate Sodium 2 tablet 12/27/23 22:00 12/30/23 09:47 Senna/Docusate Sodium 1 Tablet PO 1 tablet BID CARLOS EDUARDO Administration Sodium Chloride 10 - 40 ml 12/27/23 16:37 0.9% Saline Lock 10 Ml Syringe IV UD PRN SALINE FLUSH Tuberculin PPD 0.1 ml 01/04/24 10:00 Tuberculin,Purif.Prot.Deriv. 50 Tu/Ml Vial ID 01/04/24 10:01 X1 ONE Problem List (Updated 12/27/23 @ 17:[address] Keith Rojas MD) Recurrent deep vein thrombosis (DVT) (Acute) Compression fracture of L4 vertebra (Acute) Compression fracture of L2 (Acute) Compression fracture of L1 lumbar vertebra (Acute) Chronic low back pain (Chronic) Hypertension (Chronic) Diabetes mellitus type II, controlled (Acute) Bone marrow disorder (Acute) Pseudohyponatremia (Acute) Intractable back pain (Acute) Debility (Acute) Vital Signs Temp Pulse Resp BP Pulse Ox O2 Del Method 96.7 F L 72 18 129/72 H 94 Room Air 12/29/23 11:25 12/30/23 09:51 12/29/23 11:25 12/29/23 11:25 12/29/23 11:25 12/30/23 00:30 Oxygen Delivery Method Room Air Weight: 68.991 kg Body Mass Index (BMI) 24.5 Sodium 131 mmol/L (136-145) L 12/30/23 05:33 Potassium 4.3 mmol/L (3.5-5.1) 12/30/23 05:33 Chloride 106 mmol/L (98-107) 12/30/23 05:33 Carbon Dioxide 24.0 mmol/L (21.0-32.0) 12/30/23 05:33 Anion Gap 1 (5-15) L 12/30/23 05:33 BUN 11 mg/dL (7-18) 12/30/23 05:33 Creatinine 0.64 mg/dL (0.70-1.30) L 12/30/23 05:33 Est GFR (MDRD) Af Amer 159 mL/min (>60) 12/30/23 05:33 Est GFR (MDRD) Non-Af 132 mL/min (>60) 12/30/23 05:33 BUN/Creatinine Ratio 17.2 RATIO (10-20) 12/30/23 05:33 Glucose 123 mg/dL (74-106) H 12/30/23 05:33 Assessment/Plan: 1. Pain: acetaminophen 1000 mg PO Q8H, Oxycontin 10 mg PO BID, oxycodone 10 mg PO Q4H PRN pain (4-10), lidocaine 5% patch 2 patches topically daily. The patient has used 4 doses of PRN oxycodone so far this admission. Please continue to monitor for pain levels, PRN medication usage, LFTs (no recent LFTs documented), for constipation, respiratory depression, drowsiness/dizziness, syncope/ataxia/falls, and rash. 2. Bowel: polyethylene glycol 17 grams PO daily, bisacodyl 10 mg PO QHS, senna/docusate 2 tabs PO BID, magnesium citrate 300 mL PO daily PRN constipation. The patient has not required any PRN doses of magnesium citrate and the patient does not have a documented bowel movement this admission. Please continue to monitor for bowel movements, PRN medication usage, constipation and diarrhea. Please consider administering magnesium citrate as the patient does not have a bowel movement documented since his admission 3 days ago. 3. Osteoporosis: alendronate 70 mg once weekly on Sundays, cholecalciferol 25 mcg PO daily. Please continue to monitor for bone strength, fractures, GI distress, calcium levels (Ca = 8.5 mg/dL on 12/30/23), and for jaw pain that could indicate osteonecrosis of the jaw, as well as vitamin D levels (no recent vitamin D level documented). 4. DVT: apixaban 5 mg Po BID. Please continue to monitor for s/s of a DVT such as pain/erythema/swelling in an extremity as well as shortness of breath/chest pain, for s/s fo bleeding/excessive bruising, hemoglobin levels (Hgb = 8.4 g/dL on 12/30/23), and platelet counts (plt = 163 K/mm3 on 12/30/23). 5. Muscle spasms: baclofen 10 mg PO TID, diazepam 10 mg PO Q4H PRN muscle spasms. The patient has required 1 dose of PRN diazepam so far this admission. Please continue to monitor for muscle spasms, for drowsiness, dizziness, confusion, nausea/vomiting, itching, and constipation. 6. Neuropathic pain: gabapentin 200 mg PO TID. Please continue to monitor for neuropathic pain, for edema, dizziness, drowsiness, and fatigue. 7. Hypertension: metoprolol succinate 50 mg PO daily. Please continue to monitor blood pressures (recent range = 115-147/66-86 mmHg), heart rates (recent range = 72-89 beats/min) and for fatigue. The patient's blood pressures have mostly been elevated this admission, please consider increasing metoprolol succinate to 75 mg PO daily. 8. Nutrition: glucerna shake 120 mL PO three times daily with meals. Please continue to monitor nutritional status. Assessment/Plan for indications treated with psychotropic medications: 1. Depression/appetite loss: mirtazapine 7.5 mg PO QHS. Please continue to monitor for depression, SI, appetite, for s/s of orthostasis, for sedation, for s/s of serotonin syndrome and for constipation. Medical chart and medication regimen reviewed. The following medication irregularities or issues were identified: 1. Bowel: polyethylene glycol 17 grams PO daily, bisacodyl 10 mg PO QHS, senna/docusate 2 tabs PO BID, magnesium citrate 300 mL PO daily PRN constipation. Please consider administering magnesium citrate as the patient does not have a bowel movement documented since his admission 3 days ago. 2. Hypertension: metoprolol succinate 50 mg PO daily. The patient's blood pressures have mostly been elevated this admission, please consider increasing metoprolol succinate to 75 mg PO daily. Date Date of Note:: 12/30/23 Documented by User: Dr. Keith Rojas MD 12/30/23 13:04 TCU RX Drug Regimen Review Provider Comments Provider responsibility Provider Comments to Recommendations by Pharmacy: Agree
--- NOTE | 2023-12-30 10:28 | NURSING ---
Addendum entered by Mary Morgan 12/30/23 13:57: Danuta updated RN that they set up a call with the oncologist for tomorrow (12/31/23) @1430. Original Note: Spoke with patient and , Danuta about oncology/hematology follow-up. They would like to see Dr. Ford. Per office staff at Dr. Ford, they can't schedule patient unless they have biopsy results/diagnosis. Updated patient and . Danuta will set up a virtual visit with the [place] reservoir engineering manager to get results then they may transfer care to [place].
--- NOTE | 2023-12-30 10:43 | CASEMGMT ---
Initial SW TCU admit note SW met w/pt to complete initial assessment. SW introduced self and role. SW verified and updated contacts. Pt confirmed full code status w/SW. Educated pt to Medicare benefit, explained that he has used 7 days of his benefit between here and [place], and is on day 8. Pt's goal is to return home w/ and continuation of [facility] for PT/OT. Pt may be interested in updating LW/POA while here, did bring in copies and they are placed on chart, SW gave them the blank forms to review. SW will continue to follow along for any social service/discharge planning needs. RODRIGUEZ Saul
--- NOTE | 2023-12-30 11:03 | NURSING ---
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 He has stated he prefers to stay in his room and rest when not in therapy. 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 Farzad is not interested in having therapy dog visit or the ship rigger apprentice at this time. His will visit and bring him items he may need. His was in the room during the activity asset: and agrees with his wishes. He will watch tv, read the paper and us his smartphone. Staff will remind him weekly activities and respect his right to say no.
--- NOTE | 2023-12-30 11:09 | NURSING ---
Offered Covid vaccine, VIS provided. Patient refuses at this time.
[2023-12-30] MEDS: oxyCODONE 5 MG Tablet 10 MG PO (11:44)
[2023-12-30 14:35] VITALS: BP 134/81; PULSE 82; RESP 16; TEMP 36.9; O2SAT 96
--- NOTE | 2023-12-30 17:58 | NURSING ---
Patient noting to have apneic periods when sleeping. Increasingly worsening since change in medications yesterday. requesting baclofen to be decreased as well as gabapentin. MD notified ok to decrease gabapentin to 100 mg TID and Baclofen 5mg TID.
[2023-12-30] MEDS: Bisacodyl 5 MG Tablet 10 MG PO (22:03)
[2023-12-30] MEDS: Baclofen 10 MG Tablet 5 MG PO (22:04)
[2023-12-30] MEDS: Gabapentin 100 MG Capsule PO (22:05)
[2023-12-30] MEDS: Mirtazapine 15 MG Tablet 7.5 MG PO (22:06)
[2023-12-31] MEDS: oxyCODONE 5 MG Tablet 10 MG PO ×3 (02:36→16:35)
[2023-12-31] MEDS: diazePAM 5 MG Tablet 10 MG PO (02:52)
[2023-12-31] MEDS: 0.9% Normal Saline (1000mL) 1,000 ML 75 ML IV ×2 (02:56→16:26)
--- NOTE | 2023-12-31 03:08 | NURSING ---
Entered room, patient with all clothing off. DOUGH MIXER assisted with getting patient situated. Bedding was wet. Sheets, pad changed. Fresh gown put on patient. Patient very painful, prn medications administered. Will continue to monitor.
[2023-12-31] MEDS: Gabapentin 100 MG Capsule PO ×3 (05:46→21:22)
[2023-12-31] MEDS: Baclofen 10 MG Tablet 5 MG PO ×3 (05:46→21:22)
[2023-12-31 06:02] LABS: Hemoglobin 8.2 g/dL (13.0-16.5)
[2023-12-31 06:24] LABS: Anion Gap 1 (5-15); BUN 8 mg/dL (7-18); BUN/Creat Ratio 12.1 RATIO (10-20); Calcium,Total 8.2 mg/dL (8.5-10.1); Chloride 105 mmol/L (98-107); Creatinine, Serum 0.66 mg/dL (0.70-1.30); EST Glomerular Filtration Rate 126 mL/min (>60); Est Glom Filt Rate - Afr Amer 153 mL/min (>60); Estimated Creatinine Clearance 77.53 ml/min; Glucose 115 mg/dL (74-106); Potassium 3.4 mmol/L (3.5-5.1); Sodium Level 132 mmol/L (136-145)
--- NOTE | 2023-12-31 06:26 | NURSING ---
Patient needing to void, attempting to take his gown off. This nurse assisted him with removing gown and attempted to help him with urinal. Patient very resistant, and insisting he could get out of bed. Still very painful when he moves. Redirected numerous times. Finally able to get patient to use urinal. Afterward, attempted to give patient AM meds, able to get him to swallow Neurontin and baclofen, unable to get him to swallow Tylenol. Patient very confused with where he is and why he is here. Will continue to monitor.
[2023-12-31 06:57] LABS: Bedside Glucose 113 mg/dL (74-106)
[2023-12-31] MEDS: Senna/Docusate Sodium 1 Tablet 2 TABLET PO (09:23)
[2023-12-31] MEDS: oxyCODONE HCl Cr 10 MG Tablet PO (09:23)
[2023-12-31] MEDS: APIXABAN 5 MG TABLET PO (09:23)
[2023-12-31 09:24] VITALS: BP 168/91; PULSE 80
[2023-12-31] MEDS: Metoprolol(XL)Succ 50 MG Tablet 75 MG PO (09:24)
[2023-12-31] MEDS: Cholecalciferol (VIT D3) 25 MCG TABLET (1,000 UNITS) PO (09:24)
[2023-12-31 10:00] VITALS: RESP 18; O2SAT 97
[2023-12-31 10:34] VITALS: BP 168/91; PULSE 80; RESP 20; TEMP 36.3; O2SAT 99
[2023-12-31] MEDS: Potassium Chloride Oral Tablet 20 MEQ 40 MEQ PO (10:55)
[2023-12-31] MEDS: Acetaminophen 500 MG Tablet 1000 MG PO (15:46)
--- NOTE | 2023-12-31 21:34 | NURSING ---
Upon trying to administer HS medications patients was in room, stating that she does not want him to have anything to knock him out due to the pattern of breathing and lethargy. This nurse spoke with patient and patient states that he is not wanting to take any big medications at this time. This nurse was able to get patient to take gabapentin and baclofen, in which patient had difficulty swallowing. Patient noted to have confusion stating that he doesnt remember his surgery and did not know he was in the hospital. Patient continues to take gown off and cry stating that he doesnt know why his is in the hospital. Patient now resting in bed with eyes closed. Will continue to monitor patient.
[2024-01-01] MEDS: oxyCODONE 5 MG Tablet 10 MG PO ×4 (00:42→16:30)
[2024-01-01] MEDS: Baclofen 10 MG Tablet 5 MG PO ×3 (05:27→22:07)
[2024-01-01] MEDS: Gabapentin 100 MG Capsule PO ×3 (05:27→22:51)
[2024-01-01] MEDS: Acetaminophen 500 MG Tablet 1000 MG PO ×3 (05:28→22:08)
[2024-01-01 05:53] LABS: Hematocrit 25.4 % (40-54); Hemoglobin 8.1 g/dL (13.0-16.5)
[2024-01-01] MEDS: 0.9% Normal Saline (1000mL) 1,000 ML 75 ML IV ×2 (05:57→18:49)
[2024-01-01 06:15] LABS: Anion Gap 0 (5-15); BUN 6 mg/dL (7-18); Calcium,Total 8.1 mg/dL (8.5-10.1); Chloride 106 mmol/L (98-107); Creatinine, Serum 0.66 mg/dL (0.70-1.30); EST Glomerular Filtration Rate 126 mL/min (>60); Est Glom Filt Rate - Afr Amer 152 mL/min (>60); Estimated Creatinine Clearance 77.53 ml/min; Glucose 112 mg/dL (74-106); Potassium 3.7 mmol/L (3.5-5.1); Sodium Level 133 mmol/L (136-145)
[2024-01-01 06:48] LABS: Bedside Glucose 100 mg/dL (74-106)
--- NOTE | 2024-01-01 08:53 | NURSING ---
Addendum entered by Mary Morgan 01/01/24 14:03: Followed up with oncology office, spoke with Fawad, received orders for 40mg dexamethasone weekly per Dr. Staton. Original Note: Note left from previous shift to call hematology/onc office of Dr. Staton to see about new orders. Left VM with office including call back number and fax number.
[2024-01-01] MEDS: Glucerna Shake 120 ML LIQUID PO ×2 (09:25→16:34)
[2024-01-01] MEDS: Potassium Chloride Oral Tablet 20 MEQ PO (09:26)
[2024-01-01] MEDS: Lidocaine 5% Patch 2 PATCH TOPICAL (09:27)
[2024-01-01] MEDS: Polyethylene Glycol 3350 17 GM PACKET PO (09:29)
[2024-01-01] MEDS: oxyCODONE HCl Cr 10 MG Tablet PO ×2 (09:29→22:51)
[2024-01-01 09:30] VITALS: BP 135/68; PULSE 74; BMI 23.4
[2024-01-01] MEDS: Senna/Docusate Sodium 1 Tablet 2 TABLET PO ×2 (09:30→22:09)
[2024-01-01] MEDS: Metoprolol(XL)Succ 50 MG Tablet 75 MG PO (09:30)
--- NOTE | 2024-01-01 10:15 | CASEMGMT ---
Social Work IDT met with patient and for care plan meeting. Pt asleep during meeting and unarousable. noted pt has had a noted decline the past few days. Nursing aware. appears realistic to the disease process. SW educated to Medicare benefit and copay coverage; pt admitted on day . aware pt returning home at current LOC is not realistic. asked medical questions and this worker referred to Dr. Rojas. will be present this evening during Dr rounds and written communication left for Dr to visit . SW assured this worker is here to assist with any direction of treatment planning. appreciative. SW will continue to follow. YEFRI LiW
[2024-01-01] MEDS: APIXABAN 5 MG TABLET PO ×2 (10:27→22:07)
--- NOTE | 2024-01-01 11:12 | NURSING ---
Addendum entered by Mayr Morgan 01/01/24 12:27: Updated and patient in room. Addendum entered by Mary Morgan 01/01/24 12:27: Call from [facility], they will have to get records from bone biopsy and pathology results. Once they have records they will call TCU to set up new patient appt. Original Note: Spoke with oncology staff about consult, they requested consult be faxed. Faxed to [phone].
[2024-01-01 15:21] VITALS: BP 169/84; PULSE 75; RESP 16; TEMP 36.8; O2SAT 94
[2024-01-01] MEDS: dexAMETHasone 4 MG Tablet 40 MG PO (16:31)
[2024-01-01] MEDS: 0.9% Saline Lock 10 ML Syringe IV (18:49)
[2024-01-01] MEDS: Mirtazapine 15 MG Tablet 7.5 MG PO (22:08)
[2024-01-01] MEDS: Bisacodyl 5 MG Tablet 10 MG PO (22:08)
[2024-01-01 22:51] VITALS: O2SAT 95
[2024-01-02] MEDS: oxyCODONE 5 MG Tablet 10 MG PO (02:57)
--- NOTE | 2024-01-02 05:40 | NURSING ---
Confusion observed, written communication left for Dr. Rojas .
[2024-01-02 05:55] LABS: Hematocrit 26.9 % (40-54); Hemoglobin 8.4 g/dL (13.0-16.5)
[2024-01-02 06:18] LABS: Bedside Glucose 188 mg/dL (74-106)
[2024-01-02 06:25] LABS: Thyroid Stim Hormone (TSH) 1.01 uIU/mL (0.358-3.74)
[2024-01-02] MEDS: Baclofen 10 MG Tablet 5 MG PO ×3 (06:40→21:33)
[2024-01-02] MEDS: Acetaminophen 500 MG Tablet 1000 MG PO ×3 (06:40→21:32)
[2024-01-02] MEDS: Gabapentin 100 MG Capsule PO ×3 (06:41→21:31)
[2024-01-02] MEDS: 0.9% Normal Saline (1000mL) 1,000 ML 75 ML IV (06:50)
[2024-01-02] MEDS: Glucerna Shake 120 ML LIQUID PO ×3 (08:06→17:59)
[2024-01-02] MEDS: Potassium Chloride Oral Tablet 20 MEQ PO (08:10)
[2024-01-02] MEDS: Lidocaine 5% Patch 2 PATCH TOPICAL (09:29)
[2024-01-02] MEDS: APIXABAN 5 MG TABLET PO ×2 (09:29→21:34)
[2024-01-02] MEDS: Senna/Docusate Sodium 1 Tablet 2 TABLET PO ×2 (09:30→21:32)
[2024-01-02] MEDS: oxyCODONE HCl Cr 10 MG Tablet PO ×2 (09:30→21:31)
[2024-01-02 09:31] VITALS: PULSE 100
[2024-01-02] MEDS: Metoprolol(XL)Succ 50 MG Tablet 75 MG PO (09:31)
[2024-01-02] MEDS: Cholecalciferol (VIT D3) 25 MCG TABLET (1,000 UNITS) PO (09:32)
[2024-01-02 13:22] VITALS: BP 152/72; PULSE 80; RESP 18; TEMP 36.4; O2SAT 97
--- NOTE | 2024-01-02 13:50 | MDS.RN ---
Pain interview for mds completed.
[2024-01-02 15:58] LABS: Bacteria 0 SEEN /hpf (None Seen); Mucous, Urine 0 SEEN /hpf (<or=2+); Red Blood Cells-Urine 0 SEEN /hpf (0-5); Squamous Epithelial Cells - UA 0 SEEN /hpf (0-5); White Blood Cells 0 SEEN /hpf (0-5)
[2024-01-02 16:02] LABS: Color, Urine Yellow (Yellow); Glucose, Dipstick Normal (Normal); Leukocyte Esterase-Dipstick Negative /ul (Negative); Nitrite-Dipstick Negative (Negative); Occult Blood-Urine Negative /ul (Negative); Protein-Dipstick 15 mg/dl (Negative); Specific Gravity, Urine 1.025 (1.002-1.030); Urine Bilirubin Dipstick Negative (Negative); Urine Clarity Clear (Clear); Urine Urobilinogen Normal (Normal)
[2024-01-02 16:15] LABS: Ketone-Dipstick 150 mg/dl (Negative)
--- NOTE | 2024-01-02 16:21 | NURSING ---
Call placed to Dr. Rojas. Nurse reported critical urine ketones of 150. New order for NS 100mL/hr. Order entered by Dr. Rojas.
--- NOTE | 2024-01-02 17:04 | NURSING ---
INCREASED NS FROM 75ML TO 100ML AN HOUR PER NEW ORDER AT 1630.
[2024-01-02] MEDS: 0.9% Normal Saline (1000mL) 1,000 ML 100 ML IV (19:28)
[2024-01-02] MEDS: Bisacodyl 5 MG Tablet 10 MG PO (21:33)
[2024-01-02] MEDS: Mirtazapine 15 MG Tablet 7.5 MG PO (21:34)
[2024-01-03] MEDS: 0.9% Normal Saline (1000mL) 1,000 ML 100 ML IV ×2 (05:30→18:08)
[2024-01-03] MEDS: Gabapentin 100 MG Capsule PO ×3 (05:31→22:31)
[2024-01-03] MEDS: Acetaminophen 500 MG Tablet 1000 MG PO ×3 (05:32→22:30)
[2024-01-03] MEDS: Baclofen 10 MG Tablet 5 MG PO ×3 (05:32→22:31)
[2024-01-03 05:52] LABS: Absolute Lymphocyte Count 1.23 X10^3/uL (0.83-4.51); Absolute Neutrophil Count 2.8 X10^3/uL (2.0-7.7); Basophil# 0.01 X10^3/uL; Basophil% 0.2 % (0-1); Eosinophil# 0.01 X10^3/uL; Eosinophils% 0.2 % (0-5); Hematocrit 27.5 % (40-54); Hemoglobin 8.8 g/dL (13.0-16.5); Lymphocyte # 1.23 X10^3/ul (0.83-4.51); Lymphocyte % 26.7 % (19-41); Mean Corpuscular Hgb 32.5 pg (27.0-32.0); Mean Corpuscular Volume 101.5 fL (80-94); Mean Platelet Vol. 9.8 fl (6.2-12.0); Monocyte# 0.49 X10^3/uL; Monocyte% 10.6 % (0-10); NRBC Flagged by Analyzer 0 % (0-5); Neutrophil % 60.8 % (47-70); Platelet Count 146 K/mm3 (150-450); RBC Distribution Width CV 16.5 % (11.6-14.6); RBC Distribution Width SD 59.6 fl (35.1-43.9); Red Blood Count 2.71 M/mm3 (4.6-6.2); White Blood Count 4.6 K/mm3 (4.4-11.0)
[2024-01-03 06:32] LABS: Anion Gap 4 (5-15); BUN 20 mg/dL (7-18); BUN/Creat Ratio 26.7 RATIO (10-20); Calcium,Total 8.2 mg/dL (8.5-10.1); Chloride 111 mmol/L (98-107); Creatinine, Serum 0.75 mg/dL (0.70-1.30); EST Glomerular Filtration Rate 110 mL/min (>60); Est Glom Filt Rate - Afr Amer 133 mL/min (>60); Estimated Creatinine Clearance 77.53 ml/min; Glucose 110 mg/dL (74-106); Potassium 3.5 mmol/L (3.5-5.1); Sodium Level 137 mmol/L (136-145)
[2024-01-03 07:02] LABS: Bedside Glucose 106 mg/dL (74-106)
--- NOTE | 2024-01-03 08:37 | NURSING ---
Independent Crop Consultant Note; MDS for 01/03/2024 Complete
[2024-01-03] MEDS: Glucerna Shake 120 ML LIQUID PO ×3 (10:09→18:03)
[2024-01-03] MEDS: Potassium Chloride Oral Tablet 20 MEQ PO (10:10)
[2024-01-03] MEDS: APIXABAN 5 MG TABLET PO (10:10)
[2024-01-03] MEDS: Lidocaine 5% Patch 2 PATCH TOPICAL (10:11)
[2024-01-03] MEDS: Polyethylene Glycol 3350 17 GM PACKET PO (10:15)
[2024-01-03] MEDS: oxyCODONE HCl Cr 10 MG Tablet PO ×2 (10:15→22:31)
[2024-01-03 10:16] VITALS: BP 137/70; PULSE 74
[2024-01-03] MEDS: Metoprolol(XL)Succ 50 MG Tablet 75 MG PO (10:16)
[2024-01-03] MEDS: Senna/Docusate Sodium 1 Tablet 2 TABLET PO ×2 (10:16→22:31)
[2024-01-03] MEDS: Cholecalciferol (VIT D3) 25 MCG TABLET (1,000 UNITS) PO (10:17)
[2024-01-03] MEDS: oxyCODONE 5 MG Tablet PO ×2 (11:34→18:04)
--- NOTE | 2024-01-03 12:27 | NURSING ---
Dr. Caruso office consulted for pain management. Nurse reports Dr. Verma will be in to see patient.
--- NOTE | 2024-01-03 12:30 | CASEMGMT ---
BIMS () and PHQ9 () interviews completed on this date for MDS assessment. SW spoke with pt regarding feelings of depression. Pt presenting with poor medical prognosis and working through feelings and thoughts of illness and possible . SW encouraged verbalization of feelings and provided emotional support. Pt openly discussing positive relationship with his grandchildren and disappointment with losing this relationship and fear of how grandchildren will cope with pts . Time spent with pt encouraging life reflection. Pt is currently taking an anti depressant and medication has recently been changed. Pt's present and supportive of pt. SW will remain available for additional support as needed. JOHN PAUL Wiggins
[2024-01-03 13:48] VITALS: BP 137/70; PULSE 75; RESP 16; TEMP 36.5; O2SAT 92
--- NOTE | 2024-01-03 14:19 | NURSING ---
Concern for patient tolerating being in a WC for appt with Dr. Ford on Saturday. Called and spoke with office, they will call back about whether patient could come in a bed or not.
--- NOTE | 2024-01-03 17:17 | PCM.CONS.GEN ---
Assessment & Plan Assessment/Plan (1) Compression fracture of L4 vertebra: PLAN: Overall, his pain differential inclused compression fractures vs neoplasm related pain such as lytic lesions vs radiculopathy. He may very well have multiple etiologies for his pain. Request CT and MRI imaging from [facility] system to evaluate fractures. Order lumbar XR to evaluate possible changes/worsening of fractures vs new fractures that may be causing his worsening and debilitating pain. (2) Cancer associated pain: PLAN: It is possible that aside from the fractures he has some pain related to his multiple myeloma, such as lytic lesions. Radiation therapy may be a consideration, but will defer to heme onc regarding inititation of therapy. Additionally, based upon imaging, kyphoplasty may be needed for his compression fractures. PLAN: Continue tylenol 1000mg TID baclofen 5mg TID gabapentin 100mg TID (dose is reduced from previous and he states this has reduced sedation) Oxycontin 10mg BID Oxycodone 5mg Q4hr PRN (only taken 1 dose): He has been using his prn oxycodone sparingly. I encouraged him to use this in anticipation of when his pain will flare as it flares with activity. For example, when he is to be up and out of bed. Lidocaine patch. (3) Compression fracture of L2: PLAN: Underwent kyphoplasty at [facility] with some improvement in his pain, but it has been relatively mild and he is still very debilitated due to pain. (4) Compression fracture of L1 lumbar vertebra: PLAN: See above for plan (5) Lumbar radiculopathy: PLAN: Interestingly, he does not have significant lower extremity pain as most of his severe pain is in his back, but he does have some weakness with left hip flexion that may well be due to his foraminal stenosis, particularly concerning for L4 radiculopathy. This may be worsened due to his compression fracture of L4, that may be contributing to some of this narrowing. He states his weakness has been worsening, but he also notes that he has been very limited in his mobility the last few weeks due to pain. -Obtain prior MRI imaging -Consider LESI, which may also help reduce the inflammation/neuritis associated with his compression fracture. HPI Consult Data Date of Consult: 01/03/24 HPI Narrative Reason for Consultation: Back pain HPI Narrative: JENNIFER GOTTLIEB, is a 68 M who is admitted to TCU for rehabilitation after recent diagnosis with multiple myeloma and L2 kyphoplasty at [facility]. His pain started in August with low back pain. It was worsening and he underwent Ct scan on 10/14 at [facility] which showed L4 compression fracture. This was treated conservatively. He then developed worsening pain and underwent MRI on 12/10/2023, which showed L1, L2 and L4 compression fractures (L4 was most significant) along with bilateral L4-L5 and L5-S1 neuroforaminal stenosis. 12/18/[address] [facility]. He was treated with TLSO, PT/OT, oxycodone, Dilaudid IV for intractable low back pain. Continue Flexeril 10mg tid, Lidoderm patch, Gabapentin 200mg tid. He underwent L2 kyphoplasty per the patient and his on 12/23/2023. Subsequent imaging showed concern for bone marrow infiltrative process and he was eventually diagnosed via bone biopsy with multiple myeloma. We do not have the MRI imaging in our records. He was then discharged to TCU for debility and rehabilitation. I am consulted due to severe low back pain with movement. His pain can be 10/10 and is intermittent and sharp in nature. HIs pain is in the low back and is worse with sitting up. He was only able to tolerate sittig up today for 10 minutes before having to lay down. THis was actually an improvement from yesterday. He was started on steroid therapy from [facility], which he states has helped a bit with the pain. He is on tylenol 1000mg TID, baclofen 5mg TID, gabapentin 100mg TID Oxycontin 10mg BID Oxycodone 5mg Q4hr PRN (only taken 1 dose) Lidocaine patch. He is also on apixaban for dvt. [facility] Medical History (Updated 01/03/24 @ 17:[address] Hugo Verma MD) Basal cell carcinoma Bone marrow disorder Chronic low back pain Compression fracture of L1 lumbar vertebra Compression fracture of L2 Compression fracture of L4 vertebra Debility Diabetes mellitus type II, controlled Hypertension Intractable back pain Pseudohyponatremia Recurrent deep vein thrombosis (DVT) Home Medications amlodipine 5 mg tablet 5 mg PO QDAY BP 07/08/18 [History Last Taken 12/27/23] amoxicillin 875 mg tablet 875 mg PO BID #20 tabs 07/08/18 [Rx Last Taken Unknown] cholecalciferol (vitamin D3) 125 mcg (5,000 unit) capsule 5,000 unit PO QDAY supplement 07/08/18 [History Last Taken Unknown] metoprolol succinate 50 mg tablet,extended release 24 hr 50 mg PO QDAY BP/pulse 07/08/18 [History Last Taken Unknown] psyllium husk 0.4 gram capsule (Fiber (psyllium husk)) 0.4 g PO ONCE 07/08/18 [History Last Taken Unknown] acetaminophen 500 mg capsule 1,000 mg PO Q8 pain 12/27/23 [History Last Taken Unknown] alendronate 70 mg tablet 70 mg PO DALE bone loss 12/27/23 [History Last Taken 12/22/23] apixaban 5 mg tablet (Eliquis) 5 mg PO Q12H blood thinner 12/27/23 [History Last Taken Unknown] bisacodyl 5 mg tablet,delayed release (Laxative (bisacodyl)) 10 mg PO QHS laxative 12/27/23 [History Last Taken Unknown] cyclobenzaprine 5 mg tablet 10 mg PO TID muscle spasms 12/27/23 [History Last Taken Unknown] duloxetine 20 mg capsule,delayed release 20 mg PO QHS mood 12/27/23 [History Last Taken Unknown] gabapentin 100 mg capsule 200 mg PO TID pain 12/27/23 [History Last Taken Unknown] lidocaine 4 % topical patch 2 patch topical Q24H pain 12/27/23 [History Last Taken Unknown] oxycodone 10 mg tablet,crush resistant,extended release 12 hr (OxyContin) 10 mg PO pain 12/27/23 [History Last Taken Unknown] oxycodone 5 mg tablet 5 - 10 mg PO Q6H PRN pain 12/27/23 [History Last Taken Unknown] sennosides 8.6 mg-docusate sodium 50 mg capsule (Senna Plus) 2 tab-cap PO BID bowels 12/27/23 [History Last Taken Unknown] Allergy/AdvReac Type Severity Reaction Status Date / Time No Known Allergies Allergy Unverified 07/08/18 19:50 Family History Other Diabetes Heart disease Hypertension Surgical History (Updated 12/27/23 @ 17:[address] Keith Rojas MD) History of kyphoplasty History of tonsillectomy History of tonsillectomy and adenoidectomy Social History (Updated 12/27/23 @ 17:[address] Keith Rojas MD) household members: spouse Smoking Status: Never smoker alcohol intake: current details: Social. substance use type: does not use Physical Exam Narrative He had significant lower back pain with sitting up. Worsened without support from the bed. He had pain with percussion over the lumbar spine. He had mild pain with right hip provocative maneuvers. Denies any sensory changes. Const alert and oriented x3 Constitutional Narrative: MIldly anxious General Appearance: cooperative HEENT normocephalic Eyes PERRL Resp normal respiratory effort and normal air movement Neuro no focal motor deficits and no sensory deficits noted Neuro Narrative: He had 5/5 strength in the lower extremities, except for 4/5 with left hip flexion. Unable to assess gait due to pain. Speech: speech normal Psych affect normal Medical Records Data Medical Nutrition Assessment Dietitian: Malnutrition Criteria Met Start: 12/28/23 12:11 Freq: Status: Active Protocol: Document 01/03/24 09:01 SLA (Rec: 01/03/24 09:01 SLA Desktop) Nutrition Malnutrition Evidence of Malnutrition Exists Yes Malnutrition (severe): Acute Illness/Injury Evidenced By Suboptimal Energy Intake ( Severe),Weight Loss (Severe), Physical Changes (Moderate) Clinical Problem Acute Disease or Injury Related Malnutrition Etiology related to recent surgery and increased pain Signs/Symptoms as evidenced by 12.3% unintentional wt loss and res meeting < 75% of est nutritional needs x 1 month Status Active Problem Recommendation Dietitian Recommendations/Changes Will continue liberal regular diet d/t signs and symptoms of malnutrition Will continue glucerna shake tid w/ medpass for increased nutrition if consumed Continue appetite stimulant. Rec consider supplemental nutrition support if continued poor po intake and wt loss to prevent further decline in res nutritional status if in accordance w/ res/family wishes. Lab / Micro Data 01/03/24 05:37 01/03/24 05:37 Labs: Laboratory Results - last 24 hr 01/03/24 05:37: WBC 4.6, RBC 2.71 L, Hgb 8.8 L, Hct 27.5 L, MCV 101.5 H, MCH 32.5 H, MCHC 32.0, RDW Std Deviation 59.6 H, RDW Coeff of Adelaida 16.5 H, Plt Count 146 L, MPV 9.8, Immature Gran % (Auto) 1.500 H, Neut % (Auto) 60.8, Lymph % (Auto) 26.7, [place] % (Auto) 10.6 H, Eos % (Auto) 0.2, Baso % (Auto) 0.2, Absolute Neuts (auto) 2.8, Absolute Lymphs (auto) 1.23, Nucleated RBC % 0, Sodium 137, Potassium 3.5, Chloride 111 H, Carbon Dioxide 22.0, Anion Gap 4 L, BUN 20 H, Creatinine 0.75, Estim Creat Clear Calc 77.53, Est GFR (MDRD) Af Amer 133, Est GFR (MDRD) Non-Af 110, BUN/Creatinine Ratio 26.7 H, Glucose 110 H, Calcium 8.2 L 01/03/24 06:17: POC Glucose 106
--- NOTE | 2024-01-03 18:50 | RAD_ITS ---
INDICATION: Pain -- Portable EXAMINATION/TECHNIQUE: X-RAY - XR Spine Lumbar Min 4 Views COMPARISON: No relevant prior comparison studies available. FINDINGS: Limited AP views of the spine due to technique with over penetration. VERTEBRAE: L1 wedge compression fracture with roughly 50% vertebral body height loss, of unknown acuity. L2 wedge compression fracture status post kyphoplasty. Roughly 50% vertebral body height loss. No spondylolisthesis. Preservation of the normal lumbar lordosis. Moderate facet arthropathy lower lumbar spine. Mildly enlarged posterior spinous processes with minimal space between posterior spinous processes lumbar spine. DISCS: No significant intervertebral disc height loss. There are [id number] degenerative endplate changes. INCLUDED ABDOMEN: Air-filled small bowel loops are within normal limits. No evidence organomegaly or mass lesion. Sacroiliac joints are within normal limits. Visualized bony pelvis is intact. Subjective appearance of diffuse decreased bone mineral density. RAD/L/S Spine Min 4 Views IMPRESSION: L1 and L2 wedge compression fractures with prior kyphoplasty at L2. Diffuse appearance suggesting low bone mineral density. Mild degenerative endplate changes. No evidence of significant central spinal canal stenosis. Electronically Signed: Chepe Calderon DO at 23:55 EST ,
--- NOTE | 2024-01-03 19:48 | NURSING ---
Dr. Verma from pain clinic to see patient. Request images and reports from MRI and kyphoplasty be obtained from [facility]. Dr. Carrero office contacted and they send MRI images and report they faxed MRI report but did not see these come over and office was closing at time of call. If not received by Saturday 01/06, call back for report. Dr. Carrero office also gives number for medical records [phone] and interventional radiology [phone] in order to get surgical reports. Dr. Fercho Gloria was surgeon who did kyphoplasty. Unable to reach medical records or interventional radiology due to being after hours and will need called on Saturday 01/06. Dr. Verma also [facility] Possible injection procedure 01/07 if patient is candidate. Eliquis placed on hold and started on Lovonox.
[2024-01-03 22:00] VITALS: PULSE 68; RESP 16; O2SAT 94
[2024-01-03] MEDS: Mirtazapine 15 MG Tablet 7.5 MG PO (22:31)
[2024-01-03] MEDS: Bisacodyl 5 MG Tablet 10 MG PO (22:32)
[2024-01-04] MEDS: diazePAM 5 MG Tablet PO ×2 (01:28→19:53)
[2024-01-04] MEDS: Baclofen 10 MG Tablet 5 MG PO ×2 (05:08→13:02)
[2024-01-04] MEDS: Gabapentin 100 MG Capsule PO ×3 (05:08→21:45)
[2024-01-04] MEDS: Acetaminophen 500 MG Tablet 1000 MG PO ×3 (05:08→21:46)
[2024-01-04] MEDS: Enoxaparin 40 MG/0.4 ML Syringe SC (05:11)
[2024-01-04] MEDS: oxyCODONE 5 MG Tablet PO ×3 (05:11→18:49)
[2024-01-04 06:40] LABS: Bedside Glucose 106 mg/dL (74-106)
[2024-01-04 08:14] LABS: Absolute Lymphocyte Count 0.91 X10^3/uL (0.83-4.51); Basophil# 0.02 X10^3/uL; Basophil% 0.6 % (0-1); Eosinophil# 0.03 X10^3/uL; Eosinophils% 0.9 % (0-5); Hematocrit 24.5 % (40-54); Hemoglobin 7.8 g/dL (13.0-16.5); Lymphocyte # 0.91 X10^3/ul (0.83-4.51); Lymphocyte % 26.3 % (19-41); Mean Corp Hgb Conc 31.8 g/dL (32-36); Mean Corpuscular Hgb 32.5 pg (27.0-32.0); Mean Corpuscular Volume 102.1 fL (80-94); Mean Platelet Vol. 10.3 fl (6.2-12.0); Monocyte# 0.43 X10^3/uL; Monocyte% 12.4 % (0-10); NRBC Flagged by Analyzer 0.9 % (0-5); Neutrophil % 57.8 % (47-70); Platelet Count 117 K/mm3 (150-450); RBC Distribution Width CV 16.3 % (11.6-14.6); RBC Distribution Width SD 59.6 fl (35.1-43.9); White Blood Count 3.5 K/mm3 (4.4-11.0)
[2024-01-04 08:23] LABS: Anion Gap 1 (5-15); BUN 10 mg/dL (7-18); BUN/Creat Ratio 16.7 RATIO (10-20); Calcium,Total 8.2 mg/dL (8.5-10.1); Chloride 112 mmol/L (98-107); EST Glomerular Filtration Rate 141 mL/min (>60); Est Glom Filt Rate - Afr Amer 171 mL/min (>60); Estimated Creatinine Clearance 77.53 ml/min; Glucose 111 mg/dL (74-106); Potassium 3.5 mmol/L (3.5-5.1); Sodium Level 136 mmol/L (136-145)
[2024-01-04] MEDS: 0.9% Normal Saline (1000mL) 1,000 ML 100 ML IV ×2 (08:51→18:45)
[2024-01-04] MEDS: Glucerna Shake 120 ML LIQUID PO ×3 (09:35→17:58)
[2024-01-04] MEDS: Potassium Chloride Oral Tablet 20 MEQ PO (09:37)
[2024-01-04] MEDS: Lidocaine 5% Patch 2 PATCH TOPICAL (09:39)
[2024-01-04] MEDS: Senna/Docusate Sodium 1 Tablet 2 TABLET PO ×2 (09:42→21:46)
[2024-01-04] MEDS: Cholecalciferol (VIT D3) 25 MCG TABLET (1,000 UNITS) PO (09:42)
[2024-01-04 09:45] VITALS: BP 167/82; PULSE 76
[2024-01-04] MEDS: Metoprolol(XL)Succ 50 MG Tablet 75 MG PO (09:45)
[2024-01-04] MEDS: oxyCODONE HCl Cr 10 MG Tablet PO ×2 (09:50→21:45)
[2024-01-04] MEDS: Tuberculin,Purif.prot.deriv. 50 TU/ML Vial 0.100000000000000006 ML ID (09:53)
[2024-01-04 10:05] VITALS: BP 167/82; PULSE 76
[2024-01-04 15:30] VITALS: BP 147/79; PULSE 69; RESP 18; TEMP 36.5; O2SAT 96
[2024-01-04] MEDS: Baclofen 10 MG Tablet PO (21:45)
[2024-01-04] MEDS: Bisacodyl 5 MG Tablet 10 MG PO (21:47)
[2024-01-04] MEDS: Mirtazapine 15 MG Tablet 7.5 MG PO (21:47)
[2024-01-05] MEDS: oxyCODONE 5 MG Tablet PO ×3 (00:31→19:27)
[2024-01-05] MEDS: diazePAM 5 MG Tablet PO (04:53)
[2024-01-05] MEDS: 0.9% Normal Saline (1000mL) 1,000 ML 100 ML IV ×2 (04:54→15:00)
[2024-01-05 05:41] LABS: Absolute Lymphocyte Count 1.16 X10^3/uL (0.83-4.51); Absolute Neutrophil Count 2.1 X10^3/uL (2.0-7.7); Basophil# 0.02 X10^3/uL; Basophil% 0.5 % (0-1); Eosinophil# 0.05 X10^3/uL; Eosinophils% 1.3 % (0-5); Hematocrit 26.5 % (40-54); Hemoglobin 8.5 g/dL (13.0-16.5); Lymphocyte # 1.16 X10^3/ul (0.83-4.51); Lymphocyte % 30.3 % (19-41); Mean Corp Hgb Conc 32.1 g/dL (32-36); Mean Corpuscular Hgb 32.4 pg (27.0-32.0); Mean Corpuscular Volume 101.1 fL (80-94); Mean Platelet Vol. 10.1 fl (6.2-12.0); Monocyte# 0.48 X10^3/uL; Monocyte% 12.5 % (0-10); NRBC Flagged by Analyzer 0.8 % (0-5); Neutrophil # 2.07 X10^3/uL (2.7-7.7); Neutrophil % 54.1 % (47-70); Platelet Count 137 K/mm3 (150-450); RBC Distribution Width SD 58.3 fl (35.1-43.9); Red Blood Count 2.62 M/mm3 (4.6-6.2); White Blood Count 3.8 K/mm3 (4.4-11.0)
[2024-01-05] MEDS: Acetaminophen 500 MG Tablet 1000 MG PO ×3 (05:42→22:00)
[2024-01-05] MEDS: Gabapentin 100 MG Capsule PO ×3 (05:42→22:00)
[2024-01-05] MEDS: Baclofen 10 MG Tablet PO ×3 (05:43→22:01)
[2024-01-05 06:48] LABS: Bedside Glucose 102 mg/dL (74-106)
[2024-01-05] MEDS: Alendronate Sodium 70 MG Tablet PO (09:18)
[2024-01-05] MEDS: oxyCODONE HCl Cr 10 MG Tablet PO ×2 (10:48→22:00)
[2024-01-05] MEDS: Glucerna Shake 120 ML LIQUID PO ×3 (10:48→17:53)
[2024-01-05] MEDS: Lidocaine 5% Patch 2 PATCH TOPICAL (10:50)
[2024-01-05] MEDS: Potassium Chloride Oral Tablet 20 MEQ PO (10:52)
[2024-01-05] MEDS: Senna/Docusate Sodium 1 Tablet 2 TABLET PO ×2 (10:52→22:01)
[2024-01-05 10:53] VITALS: BP 170/93; PULSE 87
[2024-01-05] MEDS: Metoprolol(XL)Succ 50 MG Tablet 75 MG PO (10:53)
[2024-01-05] MEDS: Cholecalciferol (VIT D3) 25 MCG TABLET (1,000 UNITS) PO (10:54)
[2024-01-05] MEDS: Menthol/Lanolin/Calamine/Znox 113 GM Tube 1 APPLIC TOPICAL ×2 (10:59→22:11)
[2024-01-05 11:00] VITALS: BP 170/93; PULSE 87
--- NOTE | 2024-01-05 13:33 | NURSING ---
PT VERY TEARFUL TODAY STATING HE DOESN'T WANT TO LIVE LIKE THIS ANY MORE,IT HURTS TO BAD. PT ALSO STATED HE WAS SORRY IF HE UPSET ANY STAFF. THIS NURSE ASSURED PT THAT HE DID NOT UPSET ANY ONE AND IT WAS ALL RIGHT. THEN CAME IN. [TEARFUL] DID COME TO THIS NURSE AND ASKED FOR DNR PAPER TO SIGN STATING THAT THEY HAVE TALKED AND THAT SHE HAS NOTICED A CHANGE IN PT OVER THE WEEK AND DID NOT WANT HER TO SUFFER ANY LONGER THEN HE WOULD HAVE TO. PAPER SIGNED AND PURPLE BAND PLACED ON PT. STATED TO PT AND FAMILY THAT THEY CAN CHANGE THERE MINDS AT ANY TIME. STATED THEY WOULD KNOW MORE TOMORROW AFTER APPOINTMENT AND MAKE DECISION IF THEY WOULD WANT TO DO ANY TREATMENTS OR CALL HOSPICE. THANKED THIS NURSE. RN AWARE
[2024-01-05 15:04] VITALS: BP 151/95; PULSE 83; RESP 16; TEMP 36.7; O2SAT 92
[2024-01-05] MEDS: Mirtazapine 15 MG Tablet 7.5 MG PO (22:01)
[2024-01-05] MEDS: Bisacodyl 5 MG Tablet 10 MG PO (22:01)
[2024-01-06] MEDS: 0.9% Normal Saline (1000mL) 1,000 ML 100 ML IV ×2 (00:49→11:10)
[2024-01-06] MEDS: oxyCODONE 5 MG Tablet PO ×3 (01:42→11:05)
[2024-01-06] MEDS: diazePAM 5 MG Tablet PO (01:43)
[2024-01-06] MEDS: Baclofen 10 MG Tablet PO ×3 (05:29→21:09)
[2024-01-06] MEDS: Gabapentin 100 MG Capsule PO ×3 (05:29→21:09)
[2024-01-06] MEDS: Acetaminophen 500 MG Tablet 1000 MG PO ×2 (05:29→14:23)
[2024-01-06] MEDS: Enoxaparin 40 MG/0.4 ML Syringe SC (05:59)
[2024-01-06 06:12] LABS: Absolute Lymphocyte Count 1.28 X10^3/uL (0.83-4.51); Absolute Neutrophil Count 1.9 X10^3/uL (2.0-7.7); Basophil# 0.02 X10^3/uL; Basophil% 0.5 % (0-1); Eosinophil# 0.06 X10^3/uL; Eosinophils% 1.6 % (0-5); Hemoglobin 8.1 g/dL (13.0-16.5); Lymphocyte # 1.28 X10^3/ul (0.83-4.51); Lymphocyte % 34.3 % (19-41); Mean Corp Hgb Conc 31.2 g/dL (32-36); Mean Corpuscular Volume 102.8 fL (80-94); Mean Platelet Vol. 10.4 fl (6.2-12.0); Monocyte% 10.7 % (0-10); NRBC Flagged by Analyzer 0.8 % (0-5); Neutrophil # 1.92 X10^3/uL (2.7-7.7); Neutrophil % 51.6 % (47-70); Platelet Count 123 K/mm3 (150-450); RBC Distribution Width CV 16.5 % (11.6-14.6); RBC Distribution Width SD 59.7 fl (35.1-43.9); Red Blood Count 2.53 M/mm3 (4.6-6.2); White Blood Count 3.7 K/mm3 (4.4-11.0)
[2024-01-06 06:26] LABS: Bedside Glucose 90 mg/dL (74-106)
[2024-01-06] MEDS: oxyCODONE HCl Cr 10 MG Tablet PO ×2 (09:30→21:09)
[2024-01-06] MEDS: Glucerna Shake 120 ML LIQUID PO ×2 (09:31→18:00)
[2024-01-06] MEDS: Potassium Chloride Oral Tablet 20 MEQ PO (09:31)
[2024-01-06] MEDS: Senna/Docusate Sodium 1 Tablet 2 TABLET PO (09:32)
[2024-01-06 09:35] VITALS: BP 173/95; PULSE 71
[2024-01-06] MEDS: Metoprolol(XL)Succ 50 MG Tablet 75 MG PO (09:35)
[2024-01-06] MEDS: Cholecalciferol (VIT D3) 25 MCG TABLET (1,000 UNITS) PO (09:36)
[2024-01-06] MEDS: Menthol/Lanolin/Calamine/Znox 113 GM Tube 1 APPLIC TOPICAL ×2 (09:37→21:09)
[2024-01-06] MEDS: Lidocaine 5% Patch 2 PATCH TOPICAL (09:37)
--- NOTE | 2024-01-06 09:49 | NURSING ---
Addendum entered by Mary Morgan 01/06/24 12:02: Received records, brought to Dr. Verma's office and left with his office staff. Original Note: Faxed request for medical records from [facility] from recent kyphoplasty.
[2024-01-06 11:01] VITALS: BP 164/82
[2024-01-06 13:27] VITALS: TEMP 36.6
--- NOTE | 2024-01-06 19:34 | NURSING ---
Pt had appointment with Dr Miller (oncology) this afternoon. Returns with follow-up appointment next week and labs to be drawn 1 day prior. When asked regarding appointment, pt becomes emotional and tearful, making statements about dying and not wanting to be in pain anymore. Provided 1:1 time, active listening; effective. Pt in pleasant mood. Will monitor for behaviors/depression. Daughter present at bedside throughout day and at appointment, states that [pt/family] will likely not go to follow-up appointment, and are thinking of hospice care. per pt request, Dr. Rojas spoke with pt and family at bedside this evening.
[2024-01-06] MEDS: Bisacodyl 5 MG Tablet 10 MG PO (21:09)
[2024-01-06] MEDS: Mirtazapine 15 MG Tablet 7.5 MG PO (21:10)
[2024-01-06] MEDS: Acetaminophen 650 MG/20 ML UDC 975 MG PO (21:26)
[2024-01-07] MEDS: 0.9% Normal Saline (1000mL) 1,000 ML 100 ML IV ×2 (03:56→15:04)
[2024-01-07] MEDS: Gabapentin 100 MG Capsule PO ×3 (05:42→22:36)
[2024-01-07] MEDS: oxyCODONE 5 MG Tablet PO ×3 (05:42→14:57)
[2024-01-07] MEDS: Enoxaparin 40 MG/0.4 ML Syringe SC (05:42)
[2024-01-07] MEDS: Baclofen 10 MG Tablet PO ×3 (05:42→22:36)
[2024-01-07 06:01] LABS: Absolute Neutrophil Count 1.8 X10^3/uL (2.0-7.7); Basophil# 0.04 X10^3/uL; Basophil% 1.1 % (0-1); Eosinophil# 0.06 X10^3/uL; Eosinophils% 1.7 % (0-5); Hematocrit 27.8 % (40-54); Hemoglobin 8.7 g/dL (13.0-16.5); Lymphocyte % 35.8 % (19-41); Mean Corp Hgb Conc 31.3 g/dL (32-36); Mean Corpuscular Hgb 31.9 pg (27.0-32.0); Mean Corpuscular Volume 101.8 fL (80-94); NRBC Flagged by Analyzer 0.6 % (0-5); Neutrophil # 1.76 X10^3/uL (2.7-7.7); Neutrophil % 48.5 % (47-70); Platelet Count 126 K/mm3 (150-450); RBC Distribution Width SD 59.9 fl (35.1-43.9); Red Blood Count 2.73 M/mm3 (4.6-6.2); White Blood Count 3.6 K/mm3 (4.4-11.0)
[2024-01-07 06:19] LABS: Bedside Glucose 89 mg/dL (74-106)
[2024-01-07] MEDS: Senna/Docusate Sodium 1 Tablet 2 TABLET PO ×2 (07:56→22:38)
[2024-01-07] MEDS: Glucerna Shake 120 ML LIQUID PO ×2 (07:56→14:50)
[2024-01-07] MEDS: Cholecalciferol (VIT D3) 25 MCG TABLET (1,000 UNITS) PO (07:57)
[2024-01-07] MEDS: Lidocaine 5% Patch 2 PATCH TOPICAL (08:00)
[2024-01-07 08:01] VITALS: BP 149/88; PULSE 84
[2024-01-07] MEDS: Metoprolol(XL)Succ 50 MG Tablet 75 MG PO (08:01)
[2024-01-07] MEDS: oxyCODONE HCl Cr 10 MG Tablet PO ×2 (08:05→22:36)
[2024-01-07] MEDS: Polyethylene Glycol 3350 17 GM PACKET PO (08:23)
[2024-01-07 09:00] VITALS: BMI 23.2
[2024-01-07 13:09] VITALS: BP 161/85; PULSE 88; RESP 14; TEMP 36.4; O2SAT 91
--- NOTE | 2024-01-07 13:29 | CASEMGMT ---
Addendum entered by Susan Conrad 01/07/24 16:51: SW followed up with hospice on meeting. Meeting is scheduled with nurse, pt and at 0900 on 01/08. IDT updated. Will continue to follow. Original Note: Social Work Received update from Dr. Rojas that family is leaning toward hospice election. SW to follow up. SW met with patient and at bedside. Pt asleep during conversation, however, spoke with and relayed pts wishes for hospice election. reports pt has expressed daily he is done and wants to be comfortable. SW offered to make referral to hospice agency of choice and offered a list. denied and prefers [facility]. SW educated to IPU, if eligible, home with hospice, SNF with hospice. mentioned first choice is IPU, then home, but also concerned she may not be able to care for pt at home and inquired about SNF or [facility], specifically. SW offered to contact [facility] to inquire as pt is high LOC. appreciative. SW offered SNF list in [facility] with quality and resource data via [employer]. agreed. SW discussed OOP for SNF or AL. Also cautioned, short LOS at IPU, and pt may need to transfer home or to a facility. expressed understanding. SW provided ongoing emotional support. Educated to during remaining stay, IDT can keep pt comfortable and discontinue with therapy services while Medicare is still covering the cost for a short time. appreciative and expressed gratitude for all staff. SW returned and provided SNF and AL list. SW emailed and phoned referral to Mary at [facility]. Liaison and nurse to meet with and pt and assess for IPU appropriateness. SW will continue to follow. IDT updated. Susan Conrad, YEFRI IS PROJECT MANAGER
[2024-01-07] MEDS: morphine (oral solution) 10MG/0.5ML Syringe 10 MG SL/PO ×2 (19:05→23:45)
[2024-01-07] MEDS: LORazepam 2 MG/ML Bottle 1 MG PO (20:28)
[2024-01-07 20:36] VITALS: O2SAT 94
[2024-01-07] MEDS: Bisacodyl 5 MG Tablet 10 MG PO (22:37)
[2024-01-07] MEDS: Mirtazapine 15 MG Tablet 7.5 MG PO (22:37)
[2024-01-07] MEDS: Menthol/Lanolin/Calamine/Znox 113 GM Tube 1 APPLIC TOPICAL (22:38)
[2024-01-08] MEDS: LORazepam 2 MG/ML Bottle 1 MG PO ×2 (00:26→06:56)
[2024-01-08] MEDS: 0.9% Normal Saline (1000mL) 1,000 ML 100 ML IV ×2 (00:29→10:30)
[2024-01-08] MEDS: morphine (oral solution) 10MG/0.5ML Syringe 10 MG SL/PO ×3 (05:52→17:29)
[2024-01-08] MEDS: Baclofen 10 MG Tablet PO ×2 (05:53→13:17)
[2024-01-08] MEDS: Gabapentin 100 MG Capsule PO ×2 (05:53→13:19)
[2024-01-08] MEDS: Enoxaparin 40 MG/0.4 ML Syringe SC (05:53)
[2024-01-08 06:49] VITALS: O2SAT 92
[2024-01-08 06:49] LABS: Bedside Glucose 101 mg/dL (74-106)
[2024-01-08] MEDS: Menthol/Lanolin/Calamine/Znox 113 GM Tube 1 APPLIC TOPICAL (10:09)
[2024-01-08 11:13] VITALS: BP 168/99; PULSE 84
[2024-01-08] MEDS: Metoprolol(XL)Succ 50 MG Tablet 75 MG PO (11:13)
[2024-01-08] MEDS: Lidocaine 5% Patch 2 PATCH TOPICAL (11:14)
[2024-01-08] MEDS: dexAMETHasone 4 MG Tablet 40 MG PO (11:15)
[2024-01-08] MEDS: oxyCODONE HCl Cr 10 MG Tablet PO (11:22)
[2024-01-08 11:32] VITALS: BP 168/99; PULSE 84; RESP 16; TEMP 36.7; O2SAT 95
--- NOTE | 2024-01-08 11:49 | CASEMGMT ---
Social Work presented to this worker's office. stated a hospice nurse evaluated pt for IPU at 1800 last night and approved for admission. However, stated Dr. Verma spoke with pt and about undergoing a kyphoplasty (surgery) to assist in relieving targeted back pain. explained she was taken aback by Dr. Verma wanting to complete surgery and shocked at pt's decision for hospice services. feels conflicted with electing hospice and not having pt undergo surgery. SW assisted in walking through pros and cons of each scenario. Ultimately, concluded the end result is still the same and will proceed with hospice. stated she will speak further with pt to ensure that is his decision as well and will notify this worker. expressed appreciation for this worker's assistance. returned to this worker after speaking with pt and pt is electing to proceed with hospice IPU. ANMOL phoned Mayr at [facility] to update. Mary is sending out a nurse for assessment and liaison for consents. IDT updated. Pt and updated. -- Hospice nurse and liaison present within the 30 minutes of phone call. SW assisted hospice nurse in providing paperwork. Spoke with pt and about changing code status to DNR-CC. both agreed. Dr. Rojas signed. ANMOL will continue to assist as needed. Plan: DC 01/08 to [facility] I[facility] YEFRI Li
--- NOTE | 2024-01-08 12:24 | DS.PCM_ITS ---
Providers Date of Admission: 12/27/23 Primary Care Physician: DENISE Rich Consultations 12/31/23 19:17 Consult: Oncology/Hematology Routine Consulting Provider: [facility] ([facility]) Reason for Consult: Multiple myloma EMERGENT Consult: No MD Notified: Yes Date Notified: 12/31/23 Time Notified: 19:17 Method of Notification: Verbal Comments:: verbal & faxed 01/03/24 07:47 Consult: Pain Management Routine Consulting Provider: Loreto Caruso Reason for Consult: L1, L2, L4 cmprsn fx, s/p kypho, multiple myeloma, uncontrolled pain. EMERGENT Consult: No MD Notified: Yes Date Notified: 01/03/24 Time Notified: 07:47 Method of Notification: Verbal 01/07/24 13:18 Consult: Hospice / Palliative Care Routine Consulting Provider: [facility] Reason for Consult: HOSPICE - end stage multiple myeloma EMERGENT Consult: No MD Notified: Yes Date Notified: 01/07/24 Time Notified: 13:18 Method of Notification: Text Reason For Visit: INTRACTABLE BACK PAIN Diagnosis Discharge Diagnosis (1) Compression fracture of L4 vertebra: Status: Acute Code(s): S32.040A - Wedge compression fracture of fourth lumbar vertebra, initial encounter for closed fracture (2) Cancer associated pain: Status: Acute Code(s): G89.3 - Neoplasm related pain (acute) (chronic) (3) Compression fracture of L2: Status: Acute Code(s): S32.020A - Wedge compression fracture of second lumbar vertebra, initial encounter for closed fracture (4) Compression fracture of L1 lumbar vertebra: Status: Acute Code(s): S32.010A - Wedge compression fracture of first lumbar vertebra, initial encounter for closed fracture (5) Lumbar radiculopathy: Status: Acute Code(s): M54.16 - Radiculopathy, lumbar region Plan 68 year old male with below past medical history hospitalized for intractable back pain, kyphoplasty 12/23/2023, complicated by hyponatremia, bone marrow disorder, admitted to TCU with debility, here for rehabilitation, strengthening, prior to discharge home with . * Debility - PT/OT. * Pain - Tylenol 1000mg q8, Oxycontin 10mg bid, Oxycodone 10mg q4 prn pain (4- 10), Lidoderm 2 patches topical daily. * Bowel - Miralax 17gm daily, Senna/colace 2 tablets bid, Dulcolax 10mg po qhs, Magnesium citrate 300ml daily prn. * Adult immunization - Administer pneumonia vaccine, covid vaccine, flu vaccine as appropriate. * DVT prophylaxis - on Eliquis. * Osteoporosis - Alendonate 70mg qweek, Vitamin D3 25mcg daily. * Recurrent DVT - Eliquis 5mg bid. * Muscle spasm - Flexeril 5mg tid. * Neuropathic pain - Gabapentin 200mg tid, Duloxetine 20mg qhs, stable chronic [facility] use, GDR not recommended. * Nutrition - Glucerna Shake 120ml po tidcm. * Hypertension - Metoprolol succinate 50mg daily. * Depression/Appetite loss - rx Mirtazapine 7.5mg qhs. * Bone marrow disorder - Schedule [facility] appointment to evaluate for lymphoma vs leukemia vs multiple myeloma, Serum free lambda 185, bone marrow biopsy done 12/27/2023 at [facility]. Hospital Course Operations None Procedures None Summary of Care Provided Minutes Spent on Discharge: 35 Hospital Course: 68 year old male with below past medical history hospitalized for intractable back pain, kyphoplasty 12/23/2023, complicated by hyponatremia, bone marrow disorder, admitted to TCU with debility, here for rehabilitation, strengthening, prior to discharge home with . Resident dying of multiple myeloma, pain uncontrolled. Discharge to Inpatient Hospice facility 01/08/2024 for terminal care. Physical Exam Const alert General Appearance: cooperative HEENT normocephalic Eyes PERRL and EOMs intact bilaterally Neck supple, no JVD and no carotid bruits Resp normal respiratory effort, normal air movement and clear to auscultation bilaterally Cardio regular rate and regular rhythm GI normal to inspection, nondistended, normoactive bowel sounds, non-tender and non-distended Extremity normal capillary refill General Extremity: Negative for edema Skin no rashes or lesions noted General Skin Exam: no breakdown Psych affect normal Appearance: appropriate Medical Records Data Medical Nutrition Assessment Dietitian: Malnutrition Criteria Met Start: 12/28/23 12:11 Freq: Status: Active Protocol: Document 01/03/24 09:01 [facility] (Rec: 01/03/24 09:01 [facility] Desktop) Nutrition Malnutrition Evidence of Malnutrition Exists Yes Malnutrition (severe): Acute Illness/Injury Evidenced By Suboptimal Energy Intake ( Severe),Weight Loss (Severe), Physical Changes (Moderate) Clinical Problem Acute Disease or Injury Related Malnutrition Etiology related to recent surgery and increased pain Signs/Symptoms as evidenced by 12.3% unintentional wt loss and res meeting < 75% of est nutritional needs x 1 month Status Active Problem Recommendation Dietitian Recommendations/Changes Will continue liberal regular diet d/t signs and symptoms of malnutrition Will continue glucerna shake tid w/ medpass for increased nutrition if consumed Continue appetite stimulant. Rec consider supplemental nutrition support if continued poor po intake and wt loss to prevent further decline in res nutritional status if in accordance w/ res/family wishes. Weight / BMI Weight Weight: 65.317 kg Body Mass Index (BMI) 23.2 ABG / Lab / Microbiology Data 01/07/24 05:20 01/04/24 06:35 Laboratory: Laboratory Results - last 24 hr 01/08/24 06:23: POC Glucose 101 Microbiology: Microbiology 01/06/24 06:52 Nasal Secretion SARS-CoV-2 Antigen (Rapid) - Final 01/02/24 13:25 Urine, Clean Catch Urine Culture - Final Culture exhibits no growth. 01/02/24 02:55 Nasal Secretion SARS-CoV-2 Antigen (Rapid) - Final 01/02/24 03:00 Stool Stool Occult Blood (DIGNA) - Final 12/30/23 05:40 Nasal Secretion SARS-CoV-2 Antigen (Rapid) - Final D/C Instructions Discharge Diet: No restrictions Discharge Activity: Return to Normal Activity Additional Instructions: Discharge to Inpatient Hospice facility 01/08/2024 for terminal care. Please Follow Up With: Aliyah Staton When: Cancel. Meaningful Use Info Meaningful Use Diagnoses (Choose all that apply): None applicable Discharge Plan Admission Admit Date/Time: 12/27/23 16:18 Primary Reason for Your Visit: Debility. Attending Provider: Keith Rojas Chi Primary Care Provider: Karen Meyer NP Consulting Providers: Stu Ricketts; Nicolas Miller; Matt Ford; Guido Regan; Joseph Diamond; Efren Gonzalez; Juan Pablo Winchester; Marzena Martínez NP; Loreto Caruso; Stu Smallwood; Kitty Tyson; Catrina Rahman; Ivy Sepulveda DRAW PRESS OPERATOR Instructions Additional Instructions / Restrictions: Discharge to Inpatient Hospice facility 01/08/2024 for terminal care. Discharge Orders/Prescriptions Prescriptions: Discontinued amlodipine 5 mg tablet 5 mg PO QDAY cholecalciferol (vitamin D3) 5,000 unit capsule 5,000 unit PO QDAY metoprolol succinate 50 mg tablet extended release 24 hr 50 mg PO QDAY psyllium husk [Fiber (psyllium husk)] 0.4 gram capsule 0.4 g PO ONCE amoxicillin 875 mg tablet 875 mg PO BID Qty: 20 0RF alendronate 70 mg tablet 70 mg PO DALE Patient Comments: TAKE 1 TABLET BY MOUTH EVERY WEEK Eliquis 5 mg tablet 5 mg PO Q12H bisacodyl [Laxative (bisacodyl)] 5 mg tablet,delayed release (DR/EC) 10 mg PO QHS Patient Comments: TAKE 2 TABLETS BY MOUTH EVERY DAY AT BEDTIME cyclobenzaprine 5 mg tablet 10 mg PO TID Patient Comments: TAKE 1 TABLET BY MOUTH THREE TIMES A DAY NEEDED duloxetine 20 mg capsule,delayed release(DR/EC) 20 mg PO QHS Patient Comments: TAKE 1 CAPSULE BY MOUTH EVERY DAY AT BEDTIME NEEDED gabapentin 100 mg capsule 200 mg PO TID Patient Comments: TAKE 2 CAPSULES BY MOUTH THREE TIMES A DAY FOR 30 DAYS. lidocaine 4 % adhesive patch,medicated 2 patch TOPICAL Q24H Patient Comments: APPLY 1 PATCH DIRECTED ONCE DAILY FOR 5 DAYS. oxycodone [OxyContin] 10 mg tablet,oral only,ext.rel.12 hr 10 mg PO Patient Comments: TAKE 1 TABLET BY MOUTH EVERY 12 HOURS NEEDED oxycodone 5 mg tablet 5 - 10 mg PO Q6H PRN (Reason: pain) Patient Comments: TAKE 1 TABLET BY MOUTH EVERY 6 HOURS NEEDED FOR UP TO 7 DAYS acetaminophen 500 mg capsule 1,000 mg PO Q8 Senna Plus 8.6-50 mg capsule 2 tab-cap PO BID Referrals / Follow Up: Karen Meyer NP, DRAW PRESS OPERATOR-C [Primary Care Provider] - Disposition Disposition (needs filled in before D/C Order can be placed): Hospice in Medical Facility
[2024-01-08] MEDS: Acetaminophen 650 MG/20 ML UDC 975 MG PO (13:16)
[2024-01-08 14:00] VITALS: BP 148/84; PULSE 84; RESP 16; TEMP 36.9; O2SAT 95
--- NOTE | 2024-01-08 14:29 | MDS.RN ---
Information for the mds was obtained from review of the clinical record, interview of resident, staff, and direct observation of resident's care.
--- NOTE | 2024-01-08 15:47 | NURSING ---
IN TO SEE PT.
[2024-01-08 16:00] VITALS: BP 148/84; PULSE 84; RESP 16; TEMP 36.9; O2SAT 95
--- NOTE | 2024-01-30 14:41 | MDS.RN ---
Admission MDS was completed on time , [facility] error rejected original MDS report HELLEN 01/03/24.
== END 2024-01-08 17:35 | disposition hospice, inpatient (51) | DRG 560 ==
PROVIDERS: Admitting Provider Family Medicine Geriatric Medicine; PCP Nurse Practitioner; Visit Provider Family Medicine Geriatric Medicine
DX: S32.040D Wedge compression fracture of fourth lumbar vertebra, subsequent encounter for fracture with routine healing (principal); C90.00 Multiple myeloma not having achieved remission; E11.40 Type 2 diabetes mellitus with diabetic neuropathy, unspecified; I10 Essential (primary) hypertension; F32.A Depression, unspecified; M54.16 Radiculopathy, lumbar region; M48.061 Spinal stenosis, lumbar region without neurogenic claudication; S32.010D Wedge compression fracture of first lumbar vertebra, subsequent encounter for fracture with routine healing; S32.020D Wedge compression fracture of second lumbar vertebra, subsequent encounter for fracture with routine healing; M81.0 Age-related osteoporosis without current pathological fracture; Z79.899 Other long term (current) drug therapy; Z79.01 Long term (current) use of anticoagulants; Z86.718 Personal history of other venous thrombosis and embolism; G89.3 Neoplasm related pain (acute) (chronic)
CPT/HCPCS: 36415; 72110; 80048; 81001; 82274; 82962; 83930; 83935; 84300; 84443; 85014; 85018; 85025; 87086; 87811; 92507; 92523; 92610; 97110; 97116; 97162; 97166; 97530; 97535; 97802; J7030; A4216